=== PATIENT | female | born 1985 | race Caucasian/White ===

== ENCOUNTER 2021-03-10 08:59 | Outpatient (CLI) | payer OTHER, SELFPAY ==
--- NOTE | 2021-03-10 11:30 | NEURO_ITS ---
Impression: # Complains of nocturnal paresthesia of bilateral hands. # Right Carpal Tunnel Syndrome of moderate degree. # Evolving left Carpal Tunnel Syndrome. # No ulnar neuropathy. # Normal needle/EMG exam. Nerve Conduction Studies Anti Sensory Summary Table Stim Site NR Peak (ms) P-T Amp (?V) Site1 Site2 Delta-P (ms) Dist (cm) Shimon (m/s) Left Median Anti Sensory (2-3nd Digit) Wrist 3.2 80.8 Wrist 2-3nd Digit 3.2 14.0 44 Wrist 3.2 21.1 Wrist 2-3nd Digit 3.2 14.0 44 Right Median Anti Sensory (2-3nd Digit) Wrist 3.5 56.1 Wrist 2-3nd Digit 3.5 14.0 40 Wrist 3.6 71.4 Wrist 2-3nd Digit 3.5 14.0 40 Left Radial Anti Sensory (Base 1st Digit) Wrist 1.8 33.6 Wrist Base 1st Digit 1.8 0.0 Right Radial Anti Sensory (Base 1st Digit) Wrist 1.7 24.5 Wrist Base 1st Digit 1.7 0.0 Left Ulnar Anti Sensory (5th Digit) Wrist 2.5 73.7 Wrist 5th Digit 2.5 14.0 56 Right Ulnar Anti Sensory (5th Digit) Wrist 2.1 74.2 Wrist 5th Digit 2.1 14.0 67 Motor Summary Table Stim Site NR Onset (ms) O-P Amp (mV) Site1 Site2 Delta-0 (ms) Dist (cm) Shimon (m/s) Left Median Motor (Abd Poll Brev) Wrist 3.2 4.7 Elbow Wrist 4.1 26.0 63 Elbow 7.3 3.7 Right Median Motor (Abd Poll Brev) Wrist 4.6 2.0 Elbow Wrist 3.8 25.0 66 Elbow 8.4 2.0 Left Ulnar Motor (Abd Dig Minimi) Wrist 2.2 8.3 A Elbow Wrist 4.3 27.0 63 A Elbow 6.5 7.9 Right Ulnar Motor (Abd Dig Minimi) Wrist 2.3 9.2 A Elbow Wrist 4.1 26.0 63 A Elbow 6.4 8.6 F Wave Studies NR F-Lat (ms) L-R F-Lat (ms) Left Median (Mrkrs) (Abd Poll Brev) 24.59 1.26 Right Median (Mrkrs) (Abd Poll Brev) 25.85 1.26 Left Ulnar (Mrkrs) (Abd Dig Min) 25.16 0.52 Right Ulnar (Mrkrs) (Abd Dig Min) 25.68 0.52 EMG Side Muscle Nerve Root Ins Act Fibs Amp Dur Recrt Comment Right 1stDorInt Ulnar C8-T1 Nml Nml Nml Nml Nml Right Ext Indicis Radial (Post Int) C7-8 Nml Nml Nml Nml Nml Right Ext Digitorum Radial (Post Int) C7-8 Nml Nml Nml Nml Nml Right BrachioRad Radial C5-6 Nml Nml Nml Nml Nml Right PronatorTeres Median C6-7 Nml Nml Nml Nml Nml Right Abd Poll Brev Median C8-T1 Nml Nml Nml Nml Nml Left 1stDorInt Ulnar C8-T1 Nml Nml Nml Nml Nml Left Ext Indicis Radial (Post Int) C7-8 Nml Nml Nml Nml Nml Left Ext Digitorum Radial (Post Int) C7-8 Nml Nml Nml Nml Nml Left BrachioRad Radial C5-6 Nml Nml Nml Nml Nml Left PronatorTeres Median C6-7 Nml Nml Nml Nml Nml Left Abd Poll Brev Median C8-T1 Nml Nml Nml Nml Nml MTDD
== END 2021-03-10 09:00 | disposition home or self-care (01) ==
PROVIDERS: PCP Nurse Practitioner Family; Visit Provider Nurse Practitioner Family
DX: G56.03 Carpal tunnel syndrome, bilateral upper limbs (principal)
CPT/HCPCS: 95886; 95911

== ENCOUNTER 2021-03-24 09:25 | Outpatient (CLI) | payer OTHER, SELFPAY ==
[2021-03-24 10:28] LABS: Hematocrit 44.6 % (37.0-47.0); Hemoglobin 14.8 g/dL (12.0-15.0); Mean Corpuscular HGB Conc 33.2 g/dl (32-36); Mean Corpuscular Hemoglobin 29.2 pg (26-34); Platelet Count Result 316 k/mm3 (150-375); Red Blood Count 5.07 M/mm3 (4.2-5.4); Red Cell Distribution Width 13.7 % (11.5-14.5); White Blood Count 10.2 K/mm3 (4.5-10.0)
[2021-03-24 11:17] LABS: Alanine Aminotransferase 24 U/L (4-35); Albumin Level 4.4 g/dL (3.5-5.1); Alkaline Phosphatase 64 U/L (38-126); Anion Gap 8 mmol/L (8-16); Aspartate Amino Transferase 21 U/L (14-36); Bilirubin,Total 0.7 mg/dL (0.2-1.3); Blood Urea Nitrogen 13 mg/dL (7-17); Calcium 9.6 mg/dL (8.4-10.2); Carbon Dioxide 28 mmol/L (22-30); Chloride 103 mmol/L (98-107); Cholesterol 257 mg/dL (0-200); Estimated Glomerular Filt Rate > 60; Glucose 101 mg/dL (65-110); HDL Direct 39 mg/dL; Potassium 3.7 mmol/L (3.4-5.0); Sodium 139 mmol/L (137-145); Triglycerides 147 mg/dL (<150)
[2021-03-24 11:27] LABS: LDL Cholesterol Direct 153 mg/dL
[2021-03-24 11:52] LABS: Hemoglobin A1C 5.6 % (<5.7)
[2021-03-24 12:03] LABS: Thyroid Stimulating Hormone Reflex 0.838 uIU/mL (0.465-4.68)
[2021-03-24 12:24] LABS: Vitamin D 25 Hydroxy 50.5 ng/mL
== END 2021-03-24 09:26 | disposition home or self-care (01) ==
LOC: ANHLAB 09:29
PROVIDERS: PCP Nurse Practitioner Family; Visit Provider Obstetrics & Gynecology
DX: Z01.812 Encounter for preprocedural laboratory examination (principal); Z51.81 Encounter for therapeutic drug level monitoring; Z79.899 Other long term (current) drug therapy
CPT/HCPCS: 36415; 80053; 80061; 82306; 82607; 83036; 84443; 85027

== ENCOUNTER 2021-06-01 16:12 | Outpatient (CLI) | payer OTHER, SELFPAY | END 2021-06-01 16:13 | disposition home or self-care (01) | LOC: ANHLAB 16:14 | PROVIDERS: PCP Nurse Practitioner Family; Visit Provider Nurse Practitioner Family | DX: Z86.16 Personal history of COVID-19 (principal); Z20.822 Contact with and (suspected) exposure to COVID-19 | CPT/HCPCS: 36415; 86769 ==

== ENCOUNTER 2021-09-14 15:14 | Outpatient (CLI) | payer OTHER, SELFPAY ==
[2021-09-14 16:54] LABS: SARS-CoV-2 IgG Reactive (NonReactive)
== END 2021-09-14 15:15 | disposition home or self-care (01) ==
LOC: ANHLAB 15:17
PROVIDERS: PCP Nurse Practitioner Family; Visit Provider Nurse Practitioner Family
DX: U07.1 COVID-19 (principal)
CPT/HCPCS: 36415; 86769

== ENCOUNTER 2021-12-12 12:02 | Outpatient (CLI) | payer OTHER, SELFPAY ==
--- NOTE | ~2021-12-12 | XR_ITS ---
EXAM: XR foot LT 2V HISTORY: M79.672 - Pain in left foot 3-5 DISTAL METATARSALS NO TRAUMA COMPARISON: None available FINDINGS: Normal mineralization. No fracture or dislocation. No lytic or blastic lesion. Mild degene rative change in multiple midfoot joints and the first MTP. Plantar and Achilles enthesopathy. No ero shikha or periosteal change. Soft tissues within normal limits. IMPRESSION: No acute osseous finding in the left foot. Reviewed, dictated and finalized at location K.
== END 2021-12-12 12:03 | disposition home or self-care (01) ==
PROVIDERS: PCP Nurse Practitioner Family; Visit Provider Nurse Practitioner Family
DX: M79.672 Pain in left foot (principal)
CPT/HCPCS: 73620

== ENCOUNTER 2022-03-27 18:40 | Outpatient (CLI) | payer OTHER, SELFPAY ==
[2022-03-27 18:59] LABS: Basophils Absolute Auto 0.1 K/mm3 (0.0-0.1); Basophils Percent Auto 0.7 % (0.2-1.2); Eosinophils Absolute Auto 0.2 K/mm3 (0-0.3); Eosinophils Percent Auto 1.6 % (0-4.4); Hematocrit 40.7 % (37.0-47.0); Hemoglobin 13.3 g/dL (12.0-15.0); Immature Granulocyte Absolute 0.05 K/mm3 (0.00-0.031); Immature Granulocyte Percent A 0.4 % (0-0.5); Lymphocytes Absolute Auto 3.25 K/mm3 (0.9-3.2); Lymphocytes Percent Auto 28.6 % (18.3-44.2); Mean Corpuscular HGB Conc 32.7 g/dl (32-36); Mean Corpuscular Hemoglobin 29.6 pg (26-34); Mean Corpuscular Volume 90.4 fl (80-100); Mean Platelet Volume 11.1 fl (7.4-10.4); Monocytes Absolute Auto 0.8 K/mm3 (0.1-0.6); Monocytes Percent Auto 7.3 % (2.6-8.5); Neutrophils Percent Auto 61.4 % (45.5-73.1); Platelet Count Result 362 k/mm3 (150-375); Red Cell Distribution Width 14.3 % (11.5-14.5); White Blood Count 11.4 K/mm3 (4.5-10.0)
[2022-03-27 19:39] LABS: Alanine Aminotransferase 31 U/L (6-35); Albumin Level 4.3 g/dL (3.5-5.1); Alkaline Phosphatase 54 U/L (38-126); Anion Gap 8 mmol/L (8-16); Aspartate Amino Transferase 23 U/L (14-36); Bilirubin,Total 0.4 mg/dL (0.2-1.3); Blood Urea Nitrogen 11 mg/dL (7-17); Calcium 9.1 mg/dL (8.4-10.2); Carbon Dioxide 29 mmol/L (22-30); Chloride 102 mmol/L (98-107); Cholesterol 231 mg/dL (0-200); Estimated Glomerular Filt Rate > 60; Glucose 114 mg/dL (65-110); HDL Direct 36 mg/dL; Sodium 139 mmol/L (137-145); Triglycerides 174 mg/dL (<150)
[2022-03-27 19:50] LABS: LDL Cholesterol Direct 153 mg/dL
== END 2022-03-27 18:41 | disposition home or self-care (01) ==
LOC: ANHOBOP 18:43
PROVIDERS: PCP Nurse Practitioner Family; Visit Provider Nurse Practitioner Family
DX: U07.1 COVID-19 (principal); I10 Essential (primary) hypertension
CPT/HCPCS: 36415; 80053; 80061; 85025; 86769

== ENCOUNTER 2022-04-23 22:15 | Outpatient (CLI) | payer OTHER, SELFPAY ==
[2022-04-23 22:29] LABS: Basophils Absolute Auto 0.1 K/mm3 (0.0-0.1); Basophils Percent Auto 0.7 % (0.2-1.2); Eosinophils Absolute Auto 0.4 K/mm3 (0-0.3); Eosinophils Percent Auto 3.2 % (0-4.4); Hematocrit 41.7 % (37.0-47.0); Hemoglobin 13.9 g/dL (12.0-15.0); Immature Granulocyte Absolute 0.04 K/mm3 (0.00-0.031); Immature Granulocyte Percent A 0.3 % (0-0.5); Lymphocytes Absolute Auto 4.01 K/mm3 (0.9-3.2); Lymphocytes Percent Auto 33.3 % (18.3-44.2); Mean Corpuscular HGB Conc 33.3 g/dl (32-36); Mean Corpuscular Hemoglobin 29.7 pg (26-34); Mean Corpuscular Volume 89.1 fl (80-100); Mean Platelet Volume 11.2 fl (7.4-10.4); Monocytes Absolute Auto 0.8 K/mm3 (0.1-0.6); Monocytes Percent Auto 6.2 % (2.6-8.5); Neutrophils Absolute Auto 6.8 K/mm3 (1.3-6.7); Neutrophils Percent Auto 56.3 % (45.5-73.1); Platelet Count Result 309 k/mm3 (150-375); Red Blood Count 4.68 M/mm3 (4.2-5.4); Red Cell Distribution Width 14.2 % (11.5-14.5); White Blood Count 12.1 K/mm3 (4.5-10.0)
== END 2022-04-23 22:16 | disposition home or self-care (01) ==
LOC: ANHOBOP 22:16
PROVIDERS: PCP Nurse Practitioner Family; Visit Provider Nurse Practitioner Family
DX: D72.829 Elevated white blood cell count, unspecified (principal)
CPT/HCPCS: 36415; 85025

== ENCOUNTER 2022-05-24 01:01 | Outpatient (CLI) | payer OTHER, SELFPAY ==
[2022-05-24 01:17] LABS: Basophils Absolute Auto 0.1 K/mm3 (0.0-0.1); Basophils Percent Auto 0.5 % (0.2-1.2); Eosinophils Absolute Auto 0.4 K/mm3 (0-0.3); Eosinophils Percent Auto 2.7 % (0-4.4); Hemoglobin 14.1 g/dL (12.0-15.0); Immature Granulocyte Absolute 0.07 K/mm3 (0.00-0.031); Immature Granulocyte Percent A 0.5 % (0-0.5); Lymphocytes Percent Auto 28.9 % (18.3-44.2); Mean Corpuscular HGB Conc 33.6 g/dl (32-36); Mean Corpuscular Hemoglobin 30.2 pg (26-34); Mean Corpuscular Volume 89.9 fl (80-100); Mean Platelet Volume 10.8 fl (7.4-10.4); Monocytes Absolute Auto 0.9 K/mm3 (0.1-0.6); Monocytes Percent Auto 6.5 % (2.6-8.5); Neutrophils Percent Auto 60.9 % (45.5-73.1); Platelet Count Result 321 k/mm3 (150-375); Red Blood Count 4.67 M/mm3 (4.2-5.4); Red Cell Distribution Width 14.2 % (11.5-14.5); White Blood Count 13.1 K/mm3 (4.5-10.0)
== END 2022-05-24 01:02 | disposition home or self-care (01) ==
LOC: ANHOBOP 01:02
PROVIDERS: PCP Nurse Practitioner Family; Visit Provider Nurse Practitioner Family
DX: D72.829 Elevated white blood cell count, unspecified (principal)
CPT/HCPCS: 36415; 85025

== ENCOUNTER 2022-05-24 06:39 | Outpatient (CLI) | payer OTHER, SELFPAY ==
--- NOTE | ~2022-05-24 | CT_ITS ---
EXAMINATION: CTA brain DATE: 05/24/2022 07:23 INDICATION: Right-sided pulsatile tinnitus. TECHNIQUE: Computed tomographic angiography (CTA) of the head was performed without and with 100 mL O mnipaque-350 intravenous contrast. Automated exposure control and iterative reconstruction technique were employed. The dose-length product was 998.15 mGy-cm. Maximum intensity projection 3D reconstruc tions were created. Volume-rendered 3D reconstructions of the intracranial arteries were created by jamaal campbell technologist on a separate workstation. COMPARISON: None. FINDINGS: There is no intracranial hemorrhage, acute infarction, or abnormal intracranial mass lesion . The ventricles are normal in size. The orbits are normal. There is mild mucosal thickening in the p aranasal sinuses. The mastoid air cells are normal. The vertebral arteries are codominant. There is n o significant stenosis of basilar artery or the posterior cerebral arteries. The posterior communicat ing arteries are normal. There is no significant stenosis of the intracranial internal carotid arteri es or anterior or middle cerebral arteries. Anterior communicating artery is normal. There is no aneu rysm. IMPRESSION: 1. Normal brain. No aneurysm or significant intracranial arterial stenosis. Reviewed, dictated and finalized at location A.
[2022-05-24 07:11] LABS: Estimated Glomerular Filt Rate > 60
== END 2022-05-24 06:40 | disposition home or self-care (01) ==
PROVIDERS: PCP Nurse Practitioner Family; Visit Provider Otolaryngology
DX: H93.A1 Pulsatile tinnitus, right ear (principal)
CPT/HCPCS: 70496; Q9967

== ENCOUNTER 2022-07-25 18:39 | Outpatient (CLI) | payer OTHER, SELFPAY ==
[2022-07-25 19:01] LABS: Hematocrit 43.9 % (37.0-47.0); Mean Corpuscular HGB Conc 34.2 g/dl (32-36); Mean Corpuscular Hemoglobin 30.2 pg (26-34); Mean Corpuscular Volume 88.5 fl (80-100); Mean Platelet Volume 10.8 fl (7.4-10.4); Platelet Count Result 303 k/mm3 (150-375); Red Blood Count 4.96 M/mm3 (4.2-5.4); Red Cell Distribution Width 13.4 % (11.5-14.5); White Blood Count 10.5 K/mm3 (4.5-10.0)
[2022-07-25 19:53] LABS: Free T4 Free Thyroxine 1.15 ng/mL (0.78-2.19)
== END 2022-07-25 18:40 | disposition home or self-care (01) ==
LOC: ANHOBOP 18:42
PROVIDERS: PCP Nurse Practitioner Family; Visit Provider Obstetrics & Gynecology
DX: R53.83 Other fatigue (principal)
CPT/HCPCS: 36415; 82306; 82607; 84439; 84443; 85027

== ENCOUNTER 2022-07-31 08:51 | Outpatient (CLI) | payer OTHER, SELFPAY | END 2022-07-31 08:52 | disposition home or self-care (01) | LOC: ANHAUDIO 08:52 | PROVIDERS: PCP Nurse Practitioner Family; Visit Provider Otolaryngology | DX: H93.A1 Pulsatile tinnitus, right ear (principal); H93.8X9 Other specified disorders of ear, unspecified ear; H91.93 Unspecified hearing loss, bilateral | CPT/HCPCS: 92557; 92567 ==

== ENCOUNTER 2022-08-01 23:47 | Outpatient (CLI) | payer OTHER, SELFPAY ==
[2022-08-02 00:33] LABS: Alanine Aminotransferase 31 U/L (6-35); Albumin Level 4.7 g/dL (3.5-5.1); Alkaline Phosphatase 65 U/L (38-126); Anion Gap 8 mmol/L (8-16); Aspartate Amino Transferase 25 U/L (14-36); Bilirubin,Total 0.7 mg/dL (0.2-1.3); Blood Urea Nitrogen 13 mg/dL (7-17); Calcium 9.4 mg/dL (8.4-10.2); Carbon Dioxide 31 mmol/L (22-30); Chloride 100 mmol/L (98-107); Cholesterol 250 mg/dL (0-200); Estimated Glomerular Filt Rate > 60; Glucose 98 mg/dL (65-110); HDL Direct 41 mg/dL; Potassium 3.3 mmol/L (3.4-5.0); Sodium 139 mmol/L (137-145); Triglycerides 147 mg/dL (<150)
[2022-08-02 00:44] LABS: LDL Cholesterol Direct 156 mg/dL
[2022-08-02 01:31] LABS: Hemoglobin A1C 5.3 % (<5.7)
== END 2022-08-01 23:48 | disposition home or self-care (01) ==
LOC: ANHOBOP 23:49
PROVIDERS: PCP Nurse Practitioner Family; Visit Provider Nurse Practitioner Family
DX: I10 Essential (primary) hypertension (principal); E66.9 Obesity, unspecified
CPT/HCPCS: 36415; 80053; 80061; 83036

== ENCOUNTER 2022-08-31 09:50 | Outpatient (CLI) | payer OTHER, SELFPAY ==
--- NOTE | 2022-09-26 14:10 | WPDHOMESLEEP ---
Sleep Study - Home Unattended Date of Study: 08/31/22 Ordering Provider: Juliana Olivares APRN Interpreting Provider: Vanessa Avina, DO Home Sleep Study Type: Watch PAT Height: 1.55 m Weight: 92.533 kg Body Mass Index: 38.5 Neck Circumference (inches): 15 [place]: 10 Reason for Sleep Study Daytime hypersomnia Sleep History The patient is a 37-year-old female with hypertension pre diabetes, anxiety, obesity and history of tobacco use had a sleep study ordered by primary care for evaluation sleep apnea. The patient denies awakening from sleep short of breath. She denies awakening at night with heartburn, belching or cough. She frequently snores loud enough that others complain. She occasionally has trouble sleeping when she has a cold. She denies waking up gasping for air throughout the night. She rarely has breathing problems night observed by herself or others. He denies sweating excessively at night. She occasionally has heart palpitations or irregular heartbeats during the night. She frequently falls asleep during the day but never while driving. She denies sleep paralysis, cataplexy and hypnagogic / hypnopompic hallucinations. She occasionally has trouble at school or work due to sleepiness. She denies feeling afraid of going to sleep. She rarely has nightmares. She occasionally remembers her dreams. She rarely has thoughts racing through her mind. She occasionally feels sad, depressed and anxious. He rarely has muscular tension. She denies noticing parts of her body jerk. She denies kicking during the night. She denies having crawling and aching feelings in her legs and denies having leg pain during the night. She denies grinding her teeth during sleep and denies awakening with morning jaw pain. She denies being bothered by pain during the day and denies being awakened by pain during the night. He occasionally wakes up feeling stiff in the morning. She rarely wakes up with sore or achy muscles. She occasionally wakes up with pain in the neck, spine or other joints. She goes to bed at 9:00 p.m. on both weekdays and weekends. The amount of time it takes for her to fall asleep is variable. She wakes up 1-2 times throughout the night to urinate. It can take her 10 minutes up to a few hours to fall back asleep. She wakes up at 6:00 a.m. on weekdays and between 6-7 a.m. on weekends. She typically gets 5-7 hours of sleep per night. She will stay in bed for 20 minutes up to an hour after waking up in the morning. She currently lives with her and 4 children. 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 She will drink caffeinated soda within 2 hours of bedtime. She does not engage in physical exercise before bedtime. She will watch television before falling asleep. She will take naps in the afternoon or the evening but they are not refreshing. She drinks 2 of the 44 oz sodas per day. She quit smoking cigarettes 13 years ago. She denies alcohol and recreational drug PMFSH Past Medical History Medical History COVID-19 Essential (primary) hypertension LINO (generalized anxiety disorder) History of COVID-19 Left foot pain Obesity (BMI 35.0-39.9 without comorbidity) Seasonal allergies Sinusitis Surgical History Surgical History History of 3 sections Family History Family History Father Family history of coronary artery disease Acute myocardial infarction Hypertension Family history of type 2 diabetes mellitus Mother Family history of hypothyroidism Social History Social History Smoking status: Former smoker Alcohol intake: current Alcohol use details: Socially only Substance use: never Substance use type: does not use Occupation/Education: occupation Add
[2022-09-26 14:29] VITALS: BMI 38.5
== END 2022-09-05 16:09 | disposition home or self-care (01) ==
LOC: ANHCSM 09:51
PROVIDERS: PCP Nurse Practitioner Family; Visit Provider Nurse Practitioner Family
DX: G47.30 Sleep apnea, unspecified (principal); G47.33 Obstructive sleep apnea (adult) (pediatric)
CPT/HCPCS: 95800

== ENCOUNTER 2023-07-28 17:58 | Emergency (ER) | payer OTHER, SELFPAY ==
--- NOTE | ~2023-07-28 | CT_ITS ---
EXAMINATION: CT abdomen pelvis wo con DATE: 07/28/2023 20:25 INDICATION: R flank pain, hx of stones TECHNIQUE: Computed tomography (CT) of the abdomen and pelvis was performed without intravenous contr ast. Automated exposure control and iterative reconstruction technique were employed. The dose-length product was 1360.68 mGy-cm. COMPARISON: 05/16/2006. FINDINGS: Lower thorax: Unremarkable Liver: Normal. Biliary/Gallbladder: Gallbladder is normal. No bile duct dilation. Pancreas: No mass or duct dilation. Spleen: Normal. Adrenals:No mass. Kidneys: 11 mm exophytic right midpole simple cyst. Simple exophytic subcentimeter left upper pole cy st. Moderate right hydronephrosis. GI tract: No small or large bowel dilation. Normal appendix. Mesentery/Peritoneum: No ascites, mass, or free air. Retroperitoneum: No mass. Atherosclerotic abdominal aortic and/or arterial calcifications. Pelvis: 11 x 5 mm calcification in the distal right UVJ. The bladder is mostly decompressed. IUD, in good position. Otherwise normal uterus. Normal bilateral ovaries. Soft Tissues: Soft tissues and body wall unremarkable. Bones: No acute osseous finding. IMPRESSION: 11 x 5 mm calcification in the distal aspect of the right UVJ causing moderate obstructive uropathy. Reviewed, dictated and finalized at location K. S AND MARKETING DIRECTOR
[2023-07-28 17:59] VITALS: BP 207/117; PULSE 92; RESP 16; TEMP 36.6; O2SAT 99
[2023-07-28 18:20] LABS: Basophils Absolute Auto 0.1 K/mm3 (0.0-0.1); Basophils Percent Auto 0.9 % (0.2-1.2); Eosinophils Absolute Auto 0.3 K/mm3 (0-0.3); Eosinophils Percent Auto 2.6 % (0-4.4); Hematocrit 44.8 % (37.0-47.0); Hemoglobin 14.8 g/dL (12.0-15.0); Immature Granulocyte Absolute 0.08 K/mm3 (0.00-0.031); Immature Granulocyte Percent A 0.7 % (0-0.5); Lymphocytes Absolute Auto 4.12 K/mm3 (0.9-3.2); Lymphocytes Percent Auto 37.2 % (18.3-44.2); Mean Corpuscular Hemoglobin 30.1 pg (26-34); Mean Corpuscular Volume 91.1 fl (80-100); Mean Platelet Volume 10.8 fl (7.4-10.4); Monocytes Absolute Auto 0.8 K/mm3 (0.1-0.6); Monocytes Percent Auto 7.5 % (2.6-8.5); Neutrophils Absolute Auto 5.7 K/mm3 (1.3-6.7); Neutrophils Percent Auto 51.1 % (45.5-73.1); Platelet Count Result 335 k/mm3 (150-375); Red Blood Count 4.92 M/mm3 (4.2-5.4); White Blood Count 11.1 K/mm3 (4.5-10.0)
[2023-07-28 18:26] LABS: Appearance Urine Clear (Clear); Bacteria Urine 2+ /hpf; Bilirubin Urine Negative (Negative); Blood Urine 2+ (Negative); Color Urine Yellow (Yellow); Glucose Urine UA Negative (Negative); Ketones Urine Negative (Negative); Leukocyte Esterase Ur 2+ LEU/UL (Negative); Nitrate Urine Negative (Negative); Protein Urine Negative (Negative); RBC Urine 51-100 /hpf (0-2); Specific Grav Ur 1.016 (1.001-1.035); Squamous Epithelial Cell Urine Occasional /hpf (Few); Urobilinogen Urine 0.2 mg/dL (<2.0); WBC Urine 21-50 /hpf; pH Urine 5.5 (5.0-9.0)
[2023-07-28 18:27] LABS: Add Urine Microscopic? YES
[2023-07-28 18:34] LABS: Alanine Aminotransferase 27 U/L (6-35); Albumin Level 4.5 g/dL (3.5-5.1); Alkaline Phosphatase 59 U/L (38-126); Anion Gap 9 mmol/L (8-16); Aspartate Amino Transferase 23 U/L (14-36); Bilirubin,Total 0.4 mg/dL (0.2-1.3); Blood Urea Nitrogen 13 mg/dL (7-17); Calcium 9.9 mg/dL (8.4-10.2); Carbon Dioxide 27 mmol/L (22-30); Chloride 102 mmol/L (98-107); Estimated CRCL calculation 114 ml/min; Estimated Glomerular Filt Rate > 60; Glucose 93 mg/dL (65-110); Lipase 98 U/L (23-300); Potassium 3.5 mmol/L (3.4-5.0); Sodium 138 mmol/L (137-145)
--- NOTE | 2023-07-28 19:22 | ED.ABDPAIN ---
HPI - Abdominal Pain General Chief Complaint: Abdominal Pain Stated Complaint: flank pain Time Seen by Provider: 07/28/23 18:03 History of Present Illness HPI narrative: 38-year-old female with a history of hypertension, FRANCISCO JAVIER in the ureterolithiasis reports for evaluation for right flank pain radiating to the right abdomen x4 hours. Patient states this feels like her prior kidney stones. She reports associated nausea, no emesis. She denies dysuria but does report pressure when she tries to urinate. Denies gross hematuria, vomiting, diarrhea, fever. Denies history of stent placement for prior stones. Her last stone was in 2018. Related Data Home Medications Medication Instructions Recorded Confirmed cholecalciferol (vitamin D3) 75 6,000 unit PO WEEKLY 06/17/19 11/17/22 mcg (3,000 unit) tablet mecobalamin (vitamin B12) 5,000 5,000 mcg PO .3 times a week 06/17/19 11/17/22 mcg disintegrating tablet alprazolam 0.5 mg tablet 0.5 mg PO DAILY PRN 05/05/20 11/17/22 cetirizine 10 mg capsule (Zyrtec) 10 mg PO DAILY PRN 12/13/21 11/17/22 Allergies Allergy/AdvReac Type Severity Reaction Status Date / Time losartan Allergy Intermediate headache, Verified 07/28/23 18:17 fatigue morphine Allergy Intermediate itching Verified 07/28/23 18:17 amlodipine AdvReac Severe THOM LE Verified 07/28/23 18:17 swelling lisinopril AdvReac Severe cough Verified 07/28/23 18:17 Review of Systems Review of Systems: CONSTITUTIONAL: Denies fever, chills, or sweats. EYES: Denies visual changes, redness, or discharge. ENT: Denies rhinorrhea, congestion, sore throat, or otalgia. CARDIOVASCULAR: Denies chest pain, palpitations, or edema. RESPIRATORY: Denies cough or dyspnea. GASTROINTESTINAL: See HPI GENITOURINARY: See HPI SKIN: Denies rash or itching. MUSCULOSKELETAL: See HPI NEUROLOGIC: Denies headache, numbness, or weakness. PSYCHIATRIC: Denies anxiety or depression. [facility] Past Medical History Medical History COVID-19 Essential (primary) hypertension LINO (generalized anxiety disorder) History of COVID-19 Left foot pain Obesity (BMI 35.0-39.9 without comorbidity) Seasonal allergies Sinusitis Surgical History Surgical History History of 3 sections History of right mastoidectomy Performed 10/23/2022 - with sinus resurfacing Family History Family History Father Family history of coronary artery disease Acute myocardial infarction Hypertension Family history of type 2 diabetes mellitus Mother Family history of hypothyroidism Social History Social History Smoking status: Former smoker Alcohol intake: current Alcohol use details: Socially only Substance use: never Substance use type: does not use Occupation/Education: occupation Additional occupation/education comments: RN Gender identity (if verbalized by the patient): Female Exam Narrative: GENERAL: Patient appears uncomfortable, nontoxic appearing HEAD: Normocephalic, atraumatic. EYES: PERRLA and EOMI. ENT: Nares clear, no rhinorrhea or epistaxis. Mucous membranes moist. NECK: Supple. CHEST: Clear to auscultation. No respiratory distress. HEART: Regular rate and rhythm. No murmur heard. Normal peripheral pulses. ABDOMEN: Normoactive bowel sounds. Abdomen soft with tenderness in the right flank and right lower quadrant. No guarding, rebound or rigidity. No overlying skin changes. EXTREMITIES: Normal range of motion. No edema. SKIN: Warm, dry, no rash. NEURO: No focal deficits. Alert and oriented x3 Course Vital Signs Vital signs: Vital Signs Temperature 97.9 F 07/28/23 17:59 Pulse Rate 92 07/28/23 17:59 Respiratory Rate 16 07/28/23 17:59 Blood Pressure 207/117 H 07/28/23 17
[2023-07-28] MEDS: HYDROmorphone HCL INJ (*CRX) 1 MG/ML SYR IV PUSH ×2 (19:34→21:19)
[2023-07-28] MEDS: ONDANSETRON INJ 4 MG/2 ML VIAL IV PUSH ×2 (19:34→21:18)
[2023-07-28] MEDS: SODIUM CHLORIDE 0.9% IV 1,000 ML 999 ML IV CONT (19:35)
--- NOTE | 2023-07-28 20:23 | PC.NURSE ---
Pt to CT at this time.
[2023-07-28 21:29] VITALS: BP 154/86; PULSE 73; RESP 18; O2SAT 98
[2023-07-28 21:50] VITALS: BP 148/90; PULSE 84; RESP 19; O2SAT 100
== END 2023-07-28 21:52 | disposition home or self-care (01) ==
PROVIDERS: Emergency Medicine; Emergency Provider Physician Assistant; PCP Nurse Practitioner Family
DX: N13.9 Obstructive and reflux uropathy, unspecified (principal); N20.1 Calculus of ureter; I10 Essential (primary) hypertension; E66.9 Obesity, unspecified; Z68.41 Body mass index [BMI] 40.0-44.9, adult; G47.33 Obstructive sleep apnea (adult) (pediatric); Z87.442 Personal history of urinary calculi; Z86.16 Personal history of COVID-19; Z87.891 Personal history of nicotine dependence
CPT/HCPCS: 36415; 74176; 80053; 81001; 81025; 83690; 85025; 87077; 87086; 87186; 96361; 96374; 96375; 96376; 99284; J1170; J2405; J7030

== ENCOUNTER 2023-07-30 09:46 | Observation (INO) | payer OTHER, SELFPAY ==
[2023-07-30] VITALS (15 sets, daily range): BP systolic 126–155; BP diastolic 64–96; PULSE 90–123; RESP 12–24; TEMP 36.4–37.9; O2SAT 95–100
--- NOTE | ~2023-07-30 | XR_ITS ---
EXAMINATION: XR abdomen/kub 1V INDICATION: Large right UVJ stone TECHNIQUE: Supine views of the abdomen were obtained on 2 radiographs. COMPARISON: CT, 07/28/2023 FINDINGS: A 13 mm stone projects in the urinary bladder. The bowel gas pattern is normal. 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 An IUD is noted IMPRESSION: 1. 13 mm stone projecting in the urinary bladder. Reviewed, dictated and finalized at location B. MIZATION SPECIALIST
--- NOTE | ~2023-07-30 | XR_ITS ---
EXAMINATION: XR retrograde pyelo w/stent RT DATE: 07/30/2023 11:54 INDICATION: Right internal ureteral stent placement TECHNIQUE: Fluoroscopic images from a right stent placement are submitted for review. 26 seconds of f luoroscopy time. FINDINGS: There is a right double-J internal ureteral stent projecting in expected position, with proximal [place] loop at the level of the renal pelvis and distal loop in the pelvis within the bladder lumen. IMPRESSION: 1. Right internal ureteral stent placement. Please refer to real-time procedural findings for detai ls. Reviewed, dictated and finalized at location A. VIOR MANAGEMENT SPECIALIST IMPRESSION: 1. Right internal ureteral stent placement. Please refer to real-time procedu ral findings for details.
--- NOTE | ~2023-07-30 | XR_ITS ---
EXAMINATION: XR stent kub - surgery DATE: 08/02/2023 13:25 SLIDE FORMING MACHINE TENDER INDICATION: RIGHT STENT EXCHANGE . TECHNIQUE: 4 fluoroscopic images of the abdomen were obtained during right ureteral stent exchange pe rformed by the surgeon. I was not present in the operating room. Fluoroscopy exposure time was 14.7 s econds. Air Kerma 9.23 mGy. DAP [id number] mGym2. COMPARISON: 07/30/2023 FINDINGS: Ureteral stent evident in the cloth bin packer. Wire access. Status post deployment of the new stent, proximal c oil projects over the expected location of the renal pelvis and the distal coil over the expected loc ation of the bladder. IMPRESSION: Fluoroscopic documentation of right ureteral stent exchange. Please refer to the operative note for c omplete procedural details . Reviewed, dictated and finalized at location K. E FORMING MACHINE TENDER IMPRESSION: Fluoroscopic documentation of right ureteral stent exchange. Please refer to th e operative note for complete procedural details .
--- NOTE | 2023-07-30 10:33 | WPDURCON ---
Assessment and Plan Assessment and plan (1) Calculus of distal right ureter: Code(s): N20.1 - Calculus of ureter Status: Acute Assessment and Plan: this so she with fever and possible urinary tract infection. she will be taken urgently to the operating room for right ureteral stent placement. She understands I will unlikely be able to manipulate her stone at this time due to the presence of fever. She understands risks of bleeding, infection, damage to the urinary tract. She understands the risk of inability to place the urinary stent. Definitive stone procedure will follow as an outpatient she will be admitted to the Medicine Service postoperatively on broad-spectrum antibiotics. (2) Hydronephrosis: Code(s): N13.30 - Unspecified hydronephrosis Status: Acute (3) Abnormal urinalysis: Code(s): R82.90 - Unspecified abnormal findings in urine Status: Acute Urology Consult Note HPI Date Seen: 07/30/23 Primary Care Provider: Juliana Olivares APRN Consult Narrative Narrative: Leslie Herzog is a 38 year old female she has a previous history of nephrolithiasis. she passed the stone on her own in 2018. Over the weekend she noted acute onset of right flank pain. This was associated with nausea vomiting. She was seen in the ER. CT scan was done which showed a large 11 mm distal ureteral stone. She was sent home with pain medicine. She returns today with fever of 100.1 and continue nausea vomiting. She has also noted chills and sweating. She denies visible blood in the urine or dysuria. She will be taken emergently to the OR for ureteral stent placement Review of Systems Review of Systems: All systems reviewed & are unremarkable except as noted in HPI and below PMFSH Past Medical History Medical History (Updated 07/30/23 @ 10:39 by Braydon Da Silva MD) COVID-19 Essential (primary) hypertension Fever LINO (generalized anxiety disorder) History of COVID-19 Left foot pain Obesity (BMI 35.0-39.9 without comorbidity) Seasonal allergies Sinusitis Surgical History Surgical History History of 3 sections History of right mastoidectomy Performed 10/23/2022 - with sinus resurfacing Family History Family History Father Family history of coronary artery disease Acute myocardial infarction Hypertension Family history of type 2 diabetes mellitus Mother Family history of hypothyroidism Social History Social History Smoking status: Former smoker Alcohol intake: current Alcohol use details: Socially only Substance use: never Substance use type: does not use Occupation/Education: occupation Additional occupation/education comments: RN Gender identity (if verbalized by the patient): Female Meds Home Medications and Allergies Home Medications Medication Instructions Recorded Confirmed Type cholecalciferol (vitamin D3) 75 6,000 unit PO WEEKLY 06/17/19 11/17/22 History mcg (3,000 unit) tablet mecobalamin (vitamin B12) 5,000 5,000 mcg PO .3 times a week 06/17/19 11/17/22 History mcg disintegrating tablet alprazolam 0.5 mg tablet 0.5 mg PO DAILY PRN 05/05/20 11/17/22 History fluticasone propionate 50 1 spray intranasal DAILY #18.2 mL 05/05/20 11/17/22 Rx mcg/actuation nasal spray,suspension (Flonase Allergy Relief) cetirizine 10 mg capsule (Zyrtec) 10 mg PO DAILY PRN 12/13/21 11/17/22 History liraglutide (weight loss) 3 mg/0.5 See Rx Instructions subcut 01/12/23 Rx mL (18 mg/3 mL) subcut pen .COMPLEX #15 mL injector (Saxenda) hydrochlorothiazide 12.5 mg tablet See Rx Instructions .Route 07/19/23 Rx .COMPLEX #90 tabs hydrocodone 5 mg-acetaminophen 325 1 tablet PO Q8H PRN pain #14 tabs 07/28/23 Rx mg tablet ondansetron 4 mg disintegrating 4
--- NOTE | 2023-07-30 10:33 | ED.ABDPAIN ---
HPI - Abdominal Pain General Chief Complaint: Abdominal Pain <PATRICIA Thrasher Last Filed: 07/30/23 17:38> Stated Complaint: kidney stone <PATRICIA Thrasher Last Filed: 07/30/23 17:38> Time Seen by Provider: 07/30/23 09:59 <Kimber Rea PA-C - Last Filed: 07/30/23 17:38> Source: patient and old records reviewed <PATRICIA Thrasher Last Filed: 07/30/23 17:38> Mode of arrival: ambulatory <PATRICIA Thrasher Last Filed: 07/30/23 17:38> Limitations: no limitations <PATRICIA Thrasher Last Filed: 07/30/23 17:38> History of Present Illness HPI narrative: Patient is a 38-year-old female who presents ED with report of right-sided kidney stone. Patient reports she was seen in the ED here 2 days ago for R flank pain and diagnosed with a 11 x 5 mm stone in the right UVJ. Patient states her pain was improved in the ED and she was discharged home for outpatient Urology follow-up. Patient developed fevers yesterday, and reports having intermittent chills and diaphoresis all day long. She has been taking Tylenol and Advil throughout the day. She woke up this morning with worsening pain in her right lower abdomen as well as a persistent fever, N/V, which prompted her to return to the ED. Patient reports persistent dysuria. Denies hematuria. <Kimber Rea PA-C - Last Filed: 07/30/23 17:38> Related Data Home Medications: Home Medications Medication Instructions Recorded Confirmed mecobalamin (vitamin B12) 5,000 5,000 mcg PO .3 times a week 06/17/19 07/30/23 mcg disintegrating tablet cetirizine 10 mg capsule (Zyrtec) 10 mg PO DAILY PRN allergies 12/13/21 07/30/23 fluticasone propionate 50 1 spray intranasal DAILY PRN 07/30/23 07/30/23 mcg/actuation nasal allergies spray,suspension (Flonase Allergy Relief) hydrochlorothiazide 12.5 mg tablet 12.5 mg PO BID 07/30/23 07/30/23 <Kimber Rea PA-C - Last Filed: 07/30/23 17:38> Allergies/Adverse Reactions: Allergies Allergy/AdvReac Type Severity Reaction Status Date / Time losartan Allergy Intermediate headache, Verified 07/30/23 14:48 fatigue morphine Allergy Intermediate itching Verified 07/30/23 14:48 amlodipine AdvReac Severe THOM LE Verified 07/30/23 14:48 swelling lisinopril AdvReac Severe cough Verified 07/30/23 14:48 <Kimber Rea PA-C - Last Filed: 07/30/23 17:38> Review of Systems Review of Systems: CONSTITUTIONAL: See HPI. CARDIOVASCULAR: Denies chest pain. RESPIRATORY: Denies dyspnea. GASTROINTESTINAL: See HPI. GENITOURINARY: See HPI. MUSCULOSKELETAL: See HPI. <Kimber Rea PA-C - Last Filed: 07/30/23 17:38> All systems reviewed & are unremarkable except as noted in HPI and below <Kimber Rea PA-C - Last Filed: 07/30/23 17:38> [facility] Past Medical History Medical History: Medical History COVID-19 Essential (primary) hypertension Fever LINO (generalized anxiety disorder) History of COVID-19 Left foot pain Obesity (BMI 35.0-39.9 without comorbidity) Seasonal allergies Sinusitis <Kimber Rea PA-C - Last Filed: 07/30/23 17:38> Surgical History Surgical History: Surgical History History of 3 sections History of right mastoidectomy Performed 10/23/2022 - with sinus resurfacing <Kimber Rea PA-C - Last Filed: 07/30/23 17:38> Family History Family History: Family History Father Family history of coronary artery disease Acute myocardial infarction Hypertension Family history of type 2 diabetes mellitus Mother Family history of hypothyroidism <iKmber Rea PA-C - Last Filed: 07/30/23 17:38> Social History Social History: Social His
--- NOTE | 2023-07-30 10:42 | PM.IMHP ---
H&P: HPI History of Present Illness Date/Time: 07/30/23 10:42 Chief Complaint: Right flank pain, fever and chills Narrative: 38-year-old female with a history of hypertension, present ED with a chief complaint of right flank pain. Patient has been having intermittent right fem pain in past 2 days, patient came to ED for evaluation on jul 28, CT abdomen pelvis showed 11 x 5 mm calcification in the distal aspect of the right UVJ causing moderate obstructive uropathy, and moderate right hydronephrosis. Urinalysis showed pyuria and hematuria, 2+ bacteria. Leukocytosis 11. Patient was discharged home with the pain and antiemetic medication, tamsulosin. Patient came back home still has worsening t right flank pain, patient has suprapubic pain, dysuria., patient also has, fever, chills, nausea vomiting. Patient came back to ED for evaluation, in the ED, patient found have worsened leukocytosis today 27,300, left shift, CMP pending, urinalysis pending, blood culture pending. ER provider consulted urologist, urologist plans urgently ureteral stent placement. I discussed the case with ER provider, will start ceftriaxone 2 g IV once and daily, start fluid resuscitation, obtain blood culture urine culture. [facility] Past Medical History Medical History COVID-19 Essential (primary) hypertension Fever LINO (generalized anxiety disorder) History of COVID-19 Left foot pain Obesity (BMI 35.0-39.9 without comorbidity) Seasonal allergies Sinusitis Surgical History Surgical History History of 3 sections History of right mastoidectomy Performed 10/23/2022 - with sinus resurfacing Family History Family History Father Family history of coronary artery disease Acute myocardial infarction Hypertension Family history of type 2 diabetes mellitus Mother Family history of hypothyroidism Social History Social History Smoking status: Former smoker Tobacco type: cigarettes Alcohol intake: never Alcohol use details: Socially only Substance use: never Substance use type: does not use Do You Feel Safe in your Home?: Yes Lack of Transportation: No Lack of Food: Never True Current Housing: I Have Housing Concerned About Future Housing: No Difficulty Paying Gas/Electric Bills: No Difficulty Paying for Meds: No Currently Unemployed: No Education: Don't Know Difficulty w/ Childcare or Family Care: No Occupation/Education: occupation Additional occupation/education comments: RN Gender identity (if verbalized by the patient): Female Spiritual care concerns: No Meds Home Medications and Allergies Home Medications Medication Instructions Recorded Confirmed Type mecobalamin (vitamin B12) 5,000 5,000 mcg PO .3 times a week 06/17/19 07/30/23 History mcg disintegrating tablet cetirizine 10 mg capsule (Zyrtec) 10 mg PO DAILY PRN allergies 12/13/21 07/30/23 History tamsulosin 0.4 mg capsule (Flomax) 0.4 mg PO HS #14 caps 07/28/23 07/30/23 Rx fluticasone propionate 50 1 spray intranasal DAILY PRN 07/30/23 07/30/23 History mcg/actuation nasal allergies spray,suspension (Flonase Allergy Relief) hydrochlorothiazide 12.5 mg tablet 12.5 mg PO BID 07/30/23 07/30/23 History Allergies Allergy/AdvReac Type Severity Reaction Status Date / Time losartan Allergy Intermediate headache, Verified 07/30/23 14:48 fatigue morphine Allergy Intermediate itching Verified 07/30/23 14:48 amlodipine AdvReac Severe THOM LE Verified 07/30/23 14:48 swelling lisinopril AdvReac Severe cough Verified 07/30/23 14:48 Vital Signs Vital Signs - 24 hr 07/30/23 09:51 Temperature 99.1 F Pulse Rate 102 H Respiratory Rate 18 Blood Pressure 131/91 H Pulse Oximetry 98 O
[2023-07-30 10:44] LABS: Basophils Absolute Auto 0.1 K/mm3 (0.0-0.1); Basophils Percent Auto 0.4 % (0.2-1.2); Eosinophils Absolute Auto 2.9 K/mm3 (0-0.3); Eosinophils Percent Auto 10.6 % (0-4.4); Hematocrit 41.1 % (37.0-47.0); Hemoglobin 13.8 g/dL (12.0-15.0); Immature Granulocyte Absolute 0.19 K/mm3 (0.00-0.031); Immature Granulocyte Percent A 0.7 % (0-0.5); Lymphocytes Absolute Auto 1.04 K/mm3 (0.9-3.2); Lymphocytes Percent Auto 3.8 % (18.3-44.2); Mean Corpuscular HGB Conc 33.6 g/dl (32-36); Mean Corpuscular Hemoglobin 30.1 pg (26-34); Mean Corpuscular Volume 89.5 fl (80-100); Mean Platelet Volume 11.3 fl (7.4-10.4); Monocytes Absolute Auto 2.1 K/mm3 (0.1-0.6); Monocytes Percent Auto 7.6 % (2.6-8.5); Neutrophils Percent Auto 76.9 % (45.5-73.1); Platelet Count Result 265 k/mm3 (150-375); Red Blood Count 4.59 M/mm3 (4.2-5.4); Red Cell Distribution Width 13.7 % (11.5-14.5); White Blood Count 27.3 K/mm3 (4.5-10.0)
[2023-07-30 10:55] LABS: INR 1.1; Prothrombin Time 14.5 Seconds (11.1-14.7)
[2023-07-30 10:56] LABS: Partial Thromboplastin Time 33.8 SECONDS (22.3-36.8)
[2023-07-30 10:57] LABS: Alanine Aminotransferase 21 U/L (6-35); Albumin Level 4.2 g/dL (3.5-5.1); Alkaline Phosphatase 71 U/L (38-126); Anion Gap 9 mmol/L (8-16); Aspartate Amino Transferase 16 U/L (14-36); Bilirubin,Total 1.1 mg/dL (0.2-1.3); Blood Urea Nitrogen 12 mg/dL (7-17); Calcium 9.5 mg/dL (8.4-10.2); Carbon Dioxide 28 mmol/L (22-30); Chloride 99 mmol/L (98-107); Estimated Glomerular Filt Rate > 60; Glucose 130 mg/dL (65-110); Potassium 2.8 mmol/L (3.4-5.0); Sodium 136 mmol/L (137-145)
[2023-07-30] MEDS: LACTATED RINGERS 1,000 ML 30 ML IV CONT ×2 (11:10→12:49)
[2023-07-30 11:11] LABS: Lactic Acid Reflex 1.3 mmol/L (0.7-2.0)
--- NOTE | 2023-07-30 11:12 | WPDANESEPPF ---
Anes - Initial Pre Proc Eval Procedure: Operation Date: 07/30/23 15:00 Proposed Procedures p Cystoscopy, Right Ureteral Stent Placement - Braydon Da Silva MD Date/Time: 07/30/23 11:12 Surgeon: Zahra Dejesus MD Pre Op Diagnosis: kidney stone Patient Data Age: 38 Gender: F Height: Weight: 95.3 kg Last Vital Signs Temp 37.3 C 07/30/23 09:51 Pulse 102 H 07/30/23 09:51 Resp 18 07/30/23 09:51 BP 131/91 H 07/30/23 09:51 Pulse Ox 98 07/30/23 09:51 O2 Del Method Room Air 07/30/23 09:51 Allergies Allergy/AdvReac Type Severity Reaction Status Date / Time losartan Allergy Intermediate headache, Verified 07/30/23 10:36 fatigue morphine Allergy Intermediate itching Verified 07/30/23 10:36 amlodipine AdvReac Severe THOM LE Verified 07/30/23 10:36 swelling lisinopril AdvReac Severe cough Verified 07/30/23 10:36 Home Medications Medication Instructions Recorded Confirmed Type cholecalciferol (vitamin D3) 75 6,000 unit PO WEEKLY 06/17/19 11/17/22 History mcg (3,000 unit) tablet mecobalamin (vitamin B12) 5,000 5,000 mcg PO .3 times a week 06/17/19 11/17/22 History mcg disintegrating tablet alprazolam 0.5 mg tablet 0.5 mg PO DAILY PRN 05/05/20 11/17/22 History fluticasone propionate 50 1 spray intranasal DAILY #18.2 mL 05/05/20 11/17/22 Rx mcg/actuation nasal spray,suspension (Flonase Allergy Relief) cetirizine 10 mg capsule (Zyrtec) 10 mg PO DAILY PRN 12/13/21 11/17/22 History liraglutide (weight loss) 3 mg/0.5 See Rx Instructions subcut 01/12/23 Rx mL (18 mg/3 mL) subcut pen .COMPLEX #15 mL injector (Saxenda) hydrochlorothiazide 12.5 mg tablet See Rx Instructions .Route 07/19/23 Rx .COMPLEX #90 tabs hydrocodone 5 mg-acetaminophen 325 1 tablet PO Q8H PRN pain #14 tabs 07/28/23 Rx mg tablet ondansetron 4 mg disintegrating 4 mg PO Q8H #14 tabs 07/28/23 Rx tablet tamsulosin 0.4 mg capsule (Flomax) 0.4 mg PO HS #14 caps 07/28/23 Rx Laboratory Tests 07/30/23 10:34 WBC 27.3 H K/mm3 (4.5-10.0) RBC 4.59 M/mm3 (4.2-5.4) Hgb 13.8 g/dL (12.0-15.0) Hct 41.1 % (37.0-47.0) MCV 89.5 fl (80-100) MCH 30.1 pg (26-34) MCHC 33.6 g/dl (32-36) RDW 13.7 % (11.5-14.5) Plt Count 265 k/mm3 (150-375) MPV 11.3 H fl (7.4-10.4) Immature Gran % (Auto) 0.7 H % (0-0.5) Neut % (Auto) 76.9 H % (45.5-73.1) Lymph % (Auto) 3.8 L % (18.3-44.2) [place] % (Auto) 7.6 % (2.6-8.5) Eos % (Auto) 10.6 H % (0-4.4) Baso % (Auto) 0.4 % (0.2-1.2) Lymph # (Auto) 1.04 K/mm3 (0.9-3.2) [place] # (Auto) 2.1 H K/mm3 (0.1-0.6) Eos # (Auto) 2.9 H K/mm3 (0-0.3) Baso # (Auto) 0.1 K/mm3 (0.0-0.1) Abs Immat Gran (auto) 0.19 H K/mm3 (0.00-0.031) Absolute Neuts (auto) 21.0 H K/mm3 (1.3-6.7) Absolute Nucleated RBC 0.0 K/mm3 (0.0-0.012) Nucleated RBC % 0.0 % (0.0-0.2) PT 14.5 Seconds (11.1-14.7) INR 1.1 APTT 33.8 SECONDS (22.3-36.8) Sodium 136 L mmol/L (137-145) Potassium 2.8 L* mmol/L (3.4-5.0) Chloride 99 mmol/L (98-107) Carbon Dioxide 28 mmol/L (22-30) Anion Gap 9 mmol/L (8-16) BUN 12 mg/dL (7-17) Creatinine 0.80 mg/dL (0.7-1.0) Estim Creat Clear Calc Not Reportable Estimated GFR > 60 (59 - ) Glucose 130 H mg/dL (65-110) Lactic Acid 1.3 mmol/L (0.7-2.0) Calcium 9.5 mg/dL (8.4-10.2) Total Bilirubin 1.1 mg/dL (0.2-1.3) AST 16 U/L (14-36) ALT 21 U/L (6-35) Alkaline Phosphatase 71 U/L (38-126) Total Protein 8.0 g/dL (6.3-8.2) Albumin 4.2 g/dL (3.5-5.1) Patient hx anesthesia problems: none Family hx anesthesia problems: none Results Review: All pre-operative results and documents have been reviewed as part of the pre-operative evaluation. [facility] Past Medical History Medical History (Reviewed 07/30/23 @ 11:12 by Timothy Fermin
[2023-07-30] MEDS: cefTRIAXone 2 GM/NS 100 ML 2 GM/100 ML BAG IVPB (11:19)
--- NOTE | 2023-07-30 11:29 | SUR.PREOP ---
1110: DR. JAMISON PERFORMING ANES EVAL. PT HAD NEG U PREG IN ED 07/28/23; UNABLE TO OBTAIN URINE TODAY FOR EMERGENT SURGERY. OK TO PROCEED WITH PRIOR LAB PER DR. JAMISON
[2023-07-30] MEDS: LIDOCAINE HCL 2% GEL UROJET 10 ML PKG MUCOUS MEM (11:32)
--- NOTE | 2023-07-30 11:36 | WPDHPUPDATE1 ---
History and Physical Update Update Date/Time: 07/30/23 11:36 History and Physical has been reviewed, including an updated exam of the patient. There are NO changes in the patient's condition. Risks, benefits, and alternatives have been discussed and questions answered. Patient agrees to proceed with procedure.
[2023-07-30] MEDS: KETOROLAC 30 MG/ML VIAL (*BKC) IV PUSH (11:40)
--- NOTE | 2023-07-30 11:58 | W.PM.PROC2 ---
Procedure Note - Detailed Date of Procedure 07/30/23 Pre-op Diagnosis ureteral stone Post-op Diagnosis Same Procedure Performed cystoscopy, right retrograde pyelogram, right ureteral stent placed Surgeon Braydon Da Silva MD Garment Fitter none Anesthesia MAC and Local ( uro jet) Indications this is a with a large distal ureteral stone. His Doe mm. She has fever as well as elevated white count. She is here today for stent placement. She understands risks of bleeding, infection, inability to place stent, damage to the urinary tract. She understands I will not be removing the stone Findings large distal ureteral Description of Procedure she was correctly identified. Informed consent obtained. She from the operating room. She was given general anesthesia. She was placed in dorsal thigh position. She was prepped and draped sterile fashion. Time-out performed. I performed cystoscopy. The bladder was examined. There was cloudy urine sent for culture. Bladder otherwise normal. I can see the right distal ureteral stone poking out of the right ureteral orifice. I did a gentle retrograde pyelogram on the right. This outlined ureteral stone with proximal hydronephrosis. A guidewire was placed in the kidney. I then placed a 4.8 x 26 stent in a standard fashion. Proximal coil the renal pelvis or upper pole. Distal coil in the bladder. The bladder was drained. She was awakened transferred to PACU in stable condition. Implants Ureteral stone Estimated Blood Loss 0 Complications No immediate complications Condition Stable Disposition PACU
--- NOTE | 2023-07-30 14:08 | SUR.PHASEI ---
Patient meets PACU discharge criteria at 1400, unit bed unavailable at this time. Patient placed in extended recovery status.
--- NOTE | 2023-07-30 14:46 | ADMGEN ---
This patient, Leslie Herzog, was admitted to Medical Room 348-01. Patient/family oriented to hospital policies and general routines including ID bracelet, bed and alarms, visiting hours, pain management, procedures, bathroom and other care routines, personal items, smoking policy, room service/diet, and visiting hours. Information on how to activate the Rapid Response Team has been discussed. Patient/Family are encouraged to report perceived risks to care and to ask questions if they do not understand what they are told or what they should do.
[2023-07-30] MEDS: POTASSIUM CHLORIDE INJ 40 MEQ in SODIUM CHLORIDE 0.9% IV 500 ML 130 MEQ IVPB (15:43)
[2023-07-30] MEDS: POTASSIUM CHLORIDE 20 MEQ ER TABLET 40 MEQ PO (15:44)
[2023-07-30] MEDS: SODIUM CHLORIDE 0.9% IV 1,000 ML 125 ML IV CONT (15:51)
[2023-07-30] MEDS: HYDROcodone/acetaminophen (*CRX) 5-325 MG TABLET 1 TAB PO ×2 (17:22→21:21)
[2023-07-31] MEDS: DOCUSATE SODIUM 100 MG CAPSULE PO ×2 (00:08→20:22)
[2023-07-31] MEDS: SODIUM CHLORIDE 0.9% IV 1,000 ML 125 ML IV CONT ×2 (00:11→06:16)
[2023-07-31] MEDS: HYDROcodone/acetaminophen (*CRX) 5-325 MG TABLET 1 TAB PO ×5 (02:04→20:16)
[2023-07-31 02:50] VITALS: BP 113/82; PULSE 71; RESP 18; TEMP 36.4; O2SAT 96
[2023-07-31 05:57] LABS: Hematocrit 36.6 % (37.0-47.0); Hemoglobin 12.1 g/dL (12.0-15.0); Mean Corpuscular HGB Conc 33.1 g/dl (32-36); Mean Corpuscular Hemoglobin 30.1 pg (26-34); Mean Platelet Volume 11.2 fl (7.4-10.4); Platelet Count Result 253 k/mm3 (150-375); Red Blood Count 4.02 M/mm3 (4.2-5.4); Red Cell Distribution Width 13.6 % (11.5-14.5); White Blood Count 23.9 K/mm3 (4.5-10.0)
[2023-07-31 06:00] VITALS: BP 153/79; PULSE 63; RESP 20; TEMP 36.3; O2SAT 98
[2023-07-31 06:03] LABS: Anion Gap 6 mmol/L (8-16); Blood Urea Nitrogen 14 mg/dL (7-17); Calcium 8.7 mg/dL (8.4-10.2); Carbon Dioxide 26 mmol/L (22-30); Chloride 105 mmol/L (98-107); Estimated Glomerular Filt Rate > 60; Glucose 117 mg/dL (65-110); Magnesium 1.9 mg/dL (1.6-2.3); Potassium 3.8 mmol/L (3.4-5.0); Sodium 137 mmol/L (137-145)
--- NOTE | 2023-07-31 07:31 | PM.IMPN ---
Progress Note: A&P Assessment and Plan (1) Urinary tract obstruction by kidney stone: Code(s): N20.0 - Calculus of kidney; N13.8 - Other obstructive and reflux uropathy Status: Acute (2) Hydronephrosis: Qualifiers: Hydronephrosis type: with ureteral calculous obstruction Qualified Code(s): N13.2 - Hydronephrosis with renal and ureteral calculous obstruction Code(s): N13.30 - Unspecified hydronephrosis Status: Acute (3) Pyelonephritis: Code(s): N12 - Tubulo-interstitial nephritis, not specified as acute or chronic Status: Acute (4) FRANCISCO JAVIER (obstructive sleep apnea): Code(s): G47.33 - Obstructive sleep apnea (adult) (pediatric) Status: Acute (5) Obesity (BMI 35.0-39.9 without comorbidity): Code(s): E66.9 - Obesity, unspecified Status: Acute (6) Essential (primary) hypertension: Code(s): I10 - Essential (primary) hypertension Status: Acute (7) Severe sepsis: Code(s): A41.9 - Sepsis, unspecified organism; R65.20 - Severe sepsis without septic shock Status: Acute Plan Right obstructive kidney stone, hydronephrosis, pyelonephritis Patient has right flank pain, UA shows pyuria, hematuria, positive bacteria in the urine CT abdomen pelvis suggests CT abdomen pelvis showed 11 x 5 mm calcification in the distal aspect of the right UVJ causing moderate obstructive uropathy, and moderate right hydronephrosis. Pressure urologist consultation, urethral stent will be placed urgent today Start ceftriaxone 2 mg IV daily Follow-up urine culture, urine culture grows Citrobacter CMP Sepsis Patient has fever 100.3, leukocytosis 27,000, tachycardia 102, tachypnea 22 meeting criteria for sepsis Resulting from pyelonephritis and obstructive kidney stone Antibiotics see above Follow-up blood culture pending, urine culture grows Citrobacter susceptibility test report to follow. Start fluid resuscitation Start normal saline IV Nausea vomiting Likely secondary to sepsis start Zofran irregular IV as needed Hypokalemia Potassium 2.5 Replace with potassium chloride 40 mEq IV and 40 mg p.o. Follow-up BMP FRANCISCO JAVIER Continue CPAP on home setting Anxiety Continue Xanax 0.5 mg daily p.o. p.r.n. Essential hypertension Continue hydrochlorothiazide 12.5 mg daily p.o. Subjective Date/time seen: 07/31/23 07:31 Interval history: Patient is afebrile overnight, blood pressure stable, urine culture grows Citrobacter Koseri. Pain is tolerable, denies chest pain, shortness breath Exam Narrative: GENERAL: Pleasant, in no acute distress. Well-nourished. - EYES: EOMI. Anicteric. - HENT: Moist mucous membranes. - LUNGS: Clear to auscultation bilaterally, no wheezing, rhonchi, or rales. The tachypnea - CARDIOVASCULAR: Regular rate and rhythm. No murmur. No JVD. Tachycardia - ABDOMEN: Soft, right CVA tender and non-distended. No palpable masses. - EXTREMITIES: No edema. Peripheral pulses 2+. Non-tender. - NEUROLOGIC: No focal neurological deficits. CN II-XII grossly intact. - PSYCHIATRIC: Awake, Alert and oriented x 3. Appropriate mood and affect. - SKIN: No rashes or lesions. Warm. - LYMPH: No cervical lymphadenopathy. Objective Data Vital Signs Vital Signs: Vital Signs - 24 hr 07/30/23 09:51 07/30/23 11:10 07/30/23 11:53 Temperature 99.1 F 100.3 F H 98.1 F Pulse Rate 102 H 123 H 108 H Respiratory Rate 18 15 24 H Blood Pressure 131/91 H 153/93 H 128/72 Pulse Oximetry 98 97 100 Oxygen Delivery Room Air Room Air Simple Face Mask Oxygen Flow Rate 8 07/30/23 12:15 07/30/23 12:30 07/30/23 12:45 Temperature Pulse Rate 102 H 103 H 102 H Respiratory Rate 20 18 20 Blood Pressure 143/88 H 136/83 139/83 Pulse Oximetry 100 97 97 Oxygen Delivery Simple Face Mask Room Air Room Air Oxygen Flow Rate 8 07/30/23 13:15 07/30/23 13:00 07/30/23 13:30 Temperature Pulse Rate 95 98 99 Respiratory Rate 18 20 17 Blood P
[2023-07-31] MEDS: cefTRIAXone 2 GM/NS 100 ML 2 GM/100 ML BAG IVPB (09:05)
[2023-07-31 11:02] VITALS: BP 147/85; PULSE 83; RESP 18; TEMP 36.8; O2SAT 98
[2023-07-31 14:00] VITALS: BP 149/90; PULSE 81; RESP 18; TEMP 36.6; O2SAT 100
--- NOTE | 2023-07-31 14:15 | WPDANESPN ---
Anes - Prog Note Post-Op Date/Time: 07/31/23 14:15 Cardiovascular status: normal Respiratory status: normal Airway patency: baseline Mental status: baseline Post-Op hydration status: normal Vital Signs: Last Vital Signs Temp 98.3 F 07/31/23 11:02 Pulse 83 07/31/23 11:02 Resp 18 07/31/23 11:02 BP 147/85 H 07/31/23 11:02 Pulse Ox 98 07/31/23 11:02 O2 Del Method Room Air 07/31/23 09:11 O2 Flow Rate 8 07/30/23 12:15 Pain Score (VAS): 0/10 I/O: Intake & Output 07/30/23 07/31/23 07/31/23 23:59 07:59 15:59 Intake Total 1840 1000 682 Output Total 100 700 525 Balance 1740 300 157 Laboratory Tests 07/31/23 05:36 07/31/23 05:36 07/31/23 05:36 WBC 23.9 H RBC 4.02 L Hgb 12.1 Hct 36.6 L MCV 91.0 MCH 30.1 MCHC 33.1 RDW 13.6 Plt Count 253 MPV 11.2 H Sodium 137 Potassium 3.8 Chloride 105 Carbon Dioxide 26 Anion Gap 6 L BUN 14 Creatinine 0.70 Estim Creat Clear Calc Not Reportable Estimated GFR > 60 Glucose 117 H Calcium 8.7 Magnesium 1.9 Microbiology 07/30/23 14:50 Blood Blood Culture - Preliminary 07/30/23 14:48 Blood Blood Culture - Preliminary Post-procedural complaints: none Patient Feedback: Patient satisfied with anesthetic care.
--- NOTE | 2023-07-31 15:09 | WPDUROPN2 ---
Progress Note: A&P Assessment and Plan (1) Pyelonephritis: Code(s): N12 - Tubulo-interstitial nephritis, not specified as acute or chronic Status: Acute (2) Calculus of distal right ureter: Code(s): N20.1 - Calculus of ureter Status: Acute Assessment and Plan: Feeling better. I'm tentatively planning cysto., right ureteroscopy with stone extraction, possible laser lithotripsy, retrograde pyelography and stent replacement. Subjective Subjective Date/Time Seen: 07/31/23 15:09 Interval history: Feeling much better today. Mild stent irritation. Review of Systems Review of Systems: All systems reviewed & are unremarkable except as noted in HPI and below Exam Const: General: no acute distress Resp: Effort & Inspection: normal respiratory effort GI: Inspection: non-distended GI Palp: No abdominal tenderness and No Guarding due to palpation present (GI) Auscultation: normal bowel sounds Objective Data Vital Signs Vital Signs: Vital Signs - 24 hr 07/30/23 20:00 07/30/23 22:00 07/31/23 06:00 Temperature 97.5 F L 97.3 F L Pulse Rate 90 63 Respiratory Rate 18 20 Blood Pressure 126/73 153/79 H Pulse Oximetry 96 98 Oxygen Delivery Room Air 07/31/23 02:50 07/31/23 09:11 07/31/23 11:02 Temperature 97.5 F L 98.3 F Pulse Rate 71 83 Respiratory Rate 18 18 Blood Pressure 113/82 147/85 H Pulse Oximetry 96 98 Oxygen Delivery Room Air 07/31/23 14:00 Temperature 97.8 F Pulse Rate 81 Respiratory Rate 18 Blood Pressure 149/90 H Pulse Oximetry 100 Oxygen Delivery Intake/Output Intake/Output: Intake & Output 07/28/23 07/29/23 07/30/23 07/31/23 23:59 23:59 23:59 23:59 Intake Total 0 2682 Output Total 100 1225 Balance 1940 1457 Meds/Results Medications: Active Medications Generic Name Dose Route Start Last Admin Trade Name Freq PRN Reason Stop Dose Admin Acetaminophen 650 mg 07/30/23 10:44 Acetaminophen 325 Mg Tablet PO Q4H PRN Mild Pain (1-3) or Fever Hydrocodone Bitart/Acetaminophen 1 tab 07/30/23 14:34 07/31/23 10:48 Hydrocodone/Acetaminophen (*Crx) 5-325 Mg Tablet PO 1 tab Q4H PRN Administration Pain Rated 4-6 Docusate Sodium 100 mg 07/30/23 23:51 07/31/23 00:08 Docusate Sodium 100 Mg Capsule PO 100 mg Q12H PRN Administration Constipation Enoxaparin Sodium 40 mg 07/31/23 09:00 07/31/23 09:01 Enoxaparin 40 Mg/0.4 Ml Syringe SUB-Q Not Given DAILY [facility] Fentanyl Citrate 50 mcg 07/30/23 10:44 Fentanyl Citrate Inj (*Crx) 100 Mcg/2 Ml Vial IV PUSH Q2H PRN Pain Rated 7-10 Fluticasone Propionate 1 spray 07/30/23 23:51 Fluticasone Propionate 0.05% Na Spr 16 Gm Btl (*Bkc) NASAL DAILY PRN allergies Ceftriaxone Sodium 2 gm in 100 mls @ 200 mls/hr 07/31/23 09:00 07/31/23 09:35 Rocephin 2 Gm/Ns 100 Ml IVPB Infused Q24H [facility] Infusion Loratadine 10 mg 07/30/23 23:51 Loratadine 10 Mg Tablet PO DAILY PRN allergies Ondansetron HCl 4 mg 07/30/23 10:44 Ondansetron Inj 4 Mg/2 Ml Vial IV PUSH Q4H PRN Nausea Tamsulosin HCl 0.4 mg 07/31/23 21:00 Tamsulosin Hcl 0.4 Mg Capsule PO [facility] Radiology Results: ITS Impressions Abdomen X-Ray 07/30/23 11:11 IMPRESSION: 1. 13 mm stone projecting in the urinary bladder. Retrograde Pyelogram 07/30/23 15:22 IMPRESSION: 1. Right internal ureteral stent placement. Please refer to real-time procedural findings for details. Labs Labs: Laboratory Results - last 24 hr 07/31/23 05:36 WBC 23.9 H RBC 4.02 L Hgb 12.1 Hct 36.6 L MCV 91.0 MCH 30.1 MCHC 33.1 RDW 13.6 Plt Count 253 MPV 11.2 H Sodium 137 Potassium 3.8 Chloride 105 Carbon Dioxide 26 Anion Gap 6 L BUN 14 Creatinine 0.70 Estim Creat Clear Calc Not Reportable Estimated GFR > 60 Glucose 117 H Calcium 8.7 Magnesium 1.9
--- NOTE | 2023-07-31 15:12 | PCCCNOTE ---
On 07/31/23, the student, [Joselyn Galarza], provided care and completed [facility] documentation on this patient. I have reviewed the student's documentation and agree with the findings.
[2023-07-31] MEDS: TAMSULOSIN HCL 0.4 MG CAPSULE PO (20:18)
[2023-07-31 22:00] VITALS: BP 151/90; PULSE 69; RESP 20; TEMP 36.4; O2SAT 99
[2023-08-01] MEDS: HYDROcodone/acetaminophen (*CRX) 5-325 MG TABLET 1 TAB PO ×6 (00:12→21:10)
[2023-08-01] MEDS: CALCIUM CARBONATE (TUMS) 500 MG (200 MG ELEMENTAL) PO ×2 (03:27→17:15)
[2023-08-01] MEDS: SALINE 0.65% NAS SOLN 44 ML BTL 1 SPRAY NASAL (03:27)
[2023-08-01 05:07] LABS: Basophils Absolute Auto 0.1 K/mm3 (0.0-0.1); Basophils Percent Auto 0.4 % (0.2-1.2); Eosinophils Absolute Auto 0.1 K/mm3 (0-0.3); Eosinophils Percent Auto 0.8 % (0-4.4); Hematocrit 33.2 % (37.0-47.0); Hemoglobin 10.9 g/dL (12.0-15.0); Immature Granulocyte Absolute 0.08 K/mm3 (0.00-0.031); Immature Granulocyte Percent A 0.6 % (0-0.5); Lymphocytes Absolute Auto 3.74 K/mm3 (0.9-3.2); Lymphocytes Percent Auto 25.8 % (18.3-44.2); Mean Corpuscular HGB Conc 32.8 g/dl (32-36); Mean Corpuscular Hemoglobin 30.2 pg (26-34); Monocytes Absolute Auto 1.1 K/mm3 (0.1-0.6); Monocytes Percent Auto 7.8 % (2.6-8.5); Neutrophils Absolute Auto 9.4 K/mm3 (1.3-6.7); Neutrophils Percent Auto 64.6 % (45.5-73.1); Platelet Count Result 229 k/mm3 (150-375); Red Blood Count 3.61 M/mm3 (4.2-5.4); Red Cell Distribution Width 13.7 % (11.5-14.5); White Blood Count 14.5 K/mm3 (4.5-10.0)
[2023-08-01] MEDS: BISACODYL 5 MG TABLET EC PO (05:11)
[2023-08-01 05:22] LABS: Alanine Aminotransferase 18 U/L (6-35); Albumin Level 3.3 g/dL (3.5-5.1); Alkaline Phosphatase 54 U/L (38-126); Anion Gap 6 mmol/L (8-16); Aspartate Amino Transferase 20 U/L (14-36); Bilirubin,Total 0.5 mg/dL (0.2-1.3); Blood Urea Nitrogen 12 mg/dL (7-17); Calcium 8.3 mg/dL (8.4-10.2); Carbon Dioxide 27 mmol/L (22-30); Chloride 104 mmol/L (98-107); Estimated Glomerular Filt Rate > 60; Glucose 89 mg/dL (65-110); Sodium 137 mmol/L (137-145)
[2023-08-01 06:00] VITALS: BP 132/81; PULSE 77; RESP 18; TEMP 36.3; O2SAT 97
--- NOTE | 2023-08-01 06:48 | WPDUROPN2 ---
Progress Note: A&P Assessment and Plan (1) Pyelonephritis: Code(s): N12 - Tubulo-interstitial nephritis, not specified as acute or chronic Status: Acute (2) Urinary tract obstruction by kidney stone: Code(s): N20.0 - Calculus of kidney; N13.8 - Other obstructive and reflux uropathy Status: Acute Assessment and Plan: Scheduled for ureteroscopy with stone extraction . Suggest keep her admitted until then. Anticipate discharge (after procedure) or Sunday. Subjective Subjective Date/Time Seen: 08/01/23 06:48 Interval history: Improving - feeling better and leukocytosis resolving. Review of Systems Cardiovascular: Cardiovascular: Denies chest pain, Denies lightheadedness, Denies palpitations and Denies dyspnea Respiratory: Respiratory: Denies dyspnea Gastrointestinal: Gastrointestinal: Denies diarrhea, Denies nausea and Denies vomiting Genitourinary: Genitourinary: Denies hematuria and Denies dysuria Endocrine: Endocrine: Denies palpitations Exam Const: General: no acute distress Resp: Effort & Inspection: normal respiratory effort GI: Inspection: non-distended GI Palp: No abdominal tenderness and No Guarding due to palpation present (GI) Auscultation: normal bowel sounds Objective Data Vital Signs Vital Signs: Vital Signs - 24 hr 07/31/23 09:11 07/31/23 11:02 07/31/23 14:00 Temperature 98.3 F 97.8 F Pulse Rate 83 81 Respiratory Rate 18 18 Blood Pressure 147/85 H 149/90 H Pulse Oximetry 98 100 Oxygen Delivery Room Air 07/31/23 22:00 Temperature 97.5 F L Pulse Rate 69 Respiratory Rate 20 Blood Pressure 151/90 H Pulse Oximetry 99 Oxygen Delivery Intake/Output Intake/Output: Intake & Output 07/29/23 07/30/23 07/31/23 08/01/23 23:59 23:59 23:59 23:59 Intake Total 0 3922 Output Total 100 1675 150 Balance 1940 2247 -150 Meds/Results Medications: Active Medications Generic Name Dose Route Start Last Admin Trade Name Freq PRN Reason Stop Dose Admin Acetaminophen 650 mg 07/30/23 10:44 Acetaminophen 325 Mg Tablet PO Q4H PRN Mild Pain (1-3) or Fever Hydrocodone Bitart/Acetaminophen 1 tab 07/30/23 14:34 08/01/23 04:10 Hydrocodone/Acetaminophen (*Crx) 5-325 Mg Tablet PO 1 tab Q4H PRN Administration Pain Rated 4-6 Calcium Carbonate 200 mg 08/01/23 02:48 08/01/23 03:27 Calcium Carbonate (Tums) 500 Mg (200 Mg Elemental) PO 200 mg Q6H PRN Administration Indigestion Docusate Sodium 100 mg 07/30/23 23:51 07/31/23 20:22 Docusate Sodium 100 Mg Capsule PO 100 mg Q12H PRN Administration Constipation Enoxaparin Sodium 40 mg 07/31/23 09:00 07/31/23 09:01 Enoxaparin 40 Mg/0.4 Ml Syringe SUB-Q Not Given DAILY [facility] Fentanyl Citrate 50 mcg 07/30/23 10:44 Fentanyl Citrate Inj (*Crx) 100 Mcg/2 Ml Vial IV PUSH Q2H PRN Pain Rated 7-10 Fluticasone Propionate 1 spray 07/30/23 23:51 Fluticasone Propionate 0.05% Na Spr 16 Gm Btl (*Bkc) NASAL DAILY PRN allergies Ceftriaxone Sodium 2 gm in 100 mls @ 200 mls/hr 07/31/23 09:00 07/31/23 09:35 Rocephin 2 Gm/Ns 100 Ml IVPB Infused Q24H [facility] Infusion Loratadine 10 mg 07/30/23 23:51 Loratadine 10 Mg Tablet PO DAILY PRN allergies Ondansetron HCl 4 mg 07/30/23 10:44 Ondansetron Inj 4 Mg/2 Ml Vial IV PUSH Q4H PRN Nausea Sodium Chloride 1 spray 08/01/23 02:48 08/01/23 03:27 Saline 0.65% Ike Soln 44 Ml Btl NASAL 1 spray Q6HR PRN Administration Congestion Tamsulosin HCl 0.4 mg 07/31/23 21:00 07/31/23 20:18 Tamsulosin Hcl 0.4 Mg Capsule PO 0.4 mg HS ZACK Administration Radiology Results: ITS Impressions Abdomen X-Ray 07/30/23 11:11 IMPRESSION: 1. 13 mm stone projecting in the urinary bladder. Retrograde Pyelogram 07/30/23 15:22 IMPRESSION: 1. Right internal ureteral stent placement. Please refer to
--- NOTE | 2023-08-01 08:25 | PM.IMPN ---
Progress Note: A&P Assessment and Plan (1) Urinary tract obstruction by kidney stone: Code(s): N20.0 - Calculus of kidney; N13.8 - Other obstructive and reflux uropathy Status: Acute (2) Hydronephrosis: Qualifiers: Hydronephrosis type: with ureteral calculous obstruction Qualified Code(s): N13.2 - Hydronephrosis with renal and ureteral calculous obstruction Code(s): N13.30 - Unspecified hydronephrosis Status: Acute (3) Pyelonephritis: Code(s): N12 - Tubulo-interstitial nephritis, not specified as acute or chronic Status: Acute (4) FRANCISCO JAVIER (obstructive sleep apnea): Code(s): G47.33 - Obstructive sleep apnea (adult) (pediatric) Status: Acute (5) Obesity (BMI 35.0-39.9 without comorbidity): Code(s): E66.9 - Obesity, unspecified Status: Acute (6) Essential (primary) hypertension: Code(s): I10 - Essential (primary) hypertension Status: Acute (7) Severe sepsis: Code(s): A41.9 - Sepsis, unspecified organism; R65.20 - Severe sepsis without septic shock Status: Acute Plan Right obstructive kidney stone, hydronephrosis, pyelonephritis Patient has right flank pain, UA shows pyuria, hematuria, positive bacteria in the urine CT abdomen pelvis suggests CT abdomen pelvis showed 11 x 5 mm calcification in the distal aspect of the right UVJ causing moderate obstructive uropathy, and moderate right hydronephrosis. Pressure urologist consultation, urethral stent will be placed urgent today Start ceftriaxone 2 mg IV daily Follow-up urine culture, urine culture grows Citrobacter, susceptible to ceftriaxone Urologist has scheduled for ureteroscopy with stone extraction . Plans to discharge patient after the surgical procedure on Sepsis Patient has fever 100.3, leukocytosis 27,000, tachycardia 102, tachypnea 22 meeting criteria for sepsis Resulting from pyelonephritis and obstructive kidney stone Antibiotics see above Follow-up blood culture, no growth so far, urine culture grows Citrobacter Received fluid resuscitation, and normal saline IV Sepsis resolved, discontinue IV fluid Nausea vomiting Likely secondary to sepsis start Zofran irregular IV as needed Resolved Hypokalemia Potassium 2.5 Replace with potassium chloride 40 mEq IV and 40 mg p.o. b.i.d. Follow magnesium Follow-up BMP FRANCISCO JAVIER Continue CPAP on home setting Anxiety Continue Xanax 0.5 mg daily p.o. p.r.n. Constipation Likely secondary to pain medication Continue Senokot docusate, start MiraLax p.o. as needed b.i.d. Essential hypertension Continue hydrochlorothiazide 12.5 mg daily p.o. Discontinue hydrochlorothiazide because of hypokalemia Patient has agreed to take losartan 25 mg eye discharge Subjective Date/time seen: 08/01/23 08:25 Interval history: I saw and examined the patient today, patient feels better, as tolerable, denies nausea vomiting, afebrile, leukocytosis improving, Exam Narrative: GENERAL: Pleasant, in no acute distress. Well-nourished. - EYES: EOMI. Anicteric. - HENT: Moist mucous membranes. - LUNGS: Clear to auscultation bilaterally, no wheezing, rhonchi, or rales. The tachypnea - CARDIOVASCULAR: Regular rate and rhythm. No murmur. No JVD. Tachycardia - ABDOMEN: Soft, right CVA tender and non-distended. No palpable masses. - EXTREMITIES: No edema. Peripheral pulses 2+. Non-tender. - NEUROLOGIC: No focal neurological deficits. CN II-XII grossly intact. - PSYCHIATRIC: Awake, Alert and oriented x 3. Appropriate mood and affect. - SKIN: No rashes or lesions. Warm. - LYMPH: No cervical lymphadenopathy. Objective Data Vital Signs Vital Signs: Vital Signs - 24 hr 07/31/23 09:11 07/31/23 11:02 07/31/23 14:00 Temperature 98.3 F 97.8 F Pulse Rate 83 81 Respiratory Rate 18 18 Blood Pressure 147/85 H 149/90 H Pulse Oximetry 98 100 Oxygen Delivery Room Air 07/31/23 22:00 08/01/23 06:00 Temp
[2023-08-01] MEDS: cefTRIAXone 2 GM/NS 100 ML 2 GM/100 ML BAG IVPB (09:37)
[2023-08-01] MEDS: FAMOTIDINE 20 MG TABLET PO (09:37)
[2023-08-01] MEDS: POTASSIUM CHLORIDE 20 MEQ PACKET (FOR LIQUID) 40 MEQ PO (09:38)
[2023-08-01 10:16] LABS: Magnesium 1.8 mg/dL (1.6-2.3)
[2023-08-01 14:00] VITALS: BP 147/90; PULSE 82; RESP 16; TEMP 36.8; O2SAT 100
--- NOTE | 2023-08-01 14:44 | WPDANESEPPF ---
Anes - Initial Pre Proc Eval Procedure: Operation Date: 08/02/23 13:30 Proposed Procedures p Cystoscopy, Right Ureteroscopy, Right Retrograde Pyelogram, Possible Right Stone Extraction, Possible Right Stent Removal/Re-Placement, Possible Holmium Laser - Thor Ryder MD Date/Time: 08/01/23 14:44 Surgeon: Zahra Dejesus MD Pre Op Diagnosis: kidney stone Patient Data Age: 38 Gender: F Height: Weight: 95.3 kg Last Vital Signs Temp 36.3 C L 08/01/23 06:00 Pulse 77 08/01/23 06:00 Resp 18 08/01/23 06:00 BP 132/81 08/01/23 06:00 Pulse Ox 97 08/01/23 06:00 O2 Del Method Room Air 08/01/23 08:00 O2 Flow Rate 8 07/30/23 12:15 Allergies Allergy/AdvReac Type Severity Reaction Status Date / Time losartan Allergy Intermediate headache, Verified 07/30/23 14:48 fatigue morphine Allergy Intermediate itching Verified 07/30/23 14:48 amlodipine AdvReac Severe THOM LE Verified 07/30/23 14:48 swelling lisinopril AdvReac Severe cough Verified 07/30/23 14:48 Home Medications Medication Instructions Recorded Confirmed Type mecobalamin (vitamin B12) 5,000 5,000 mcg PO .3 times a week 06/17/19 07/30/23 History mcg disintegrating tablet cetirizine 10 mg capsule (Zyrtec) 10 mg PO DAILY PRN allergies 12/13/21 07/30/23 History tamsulosin 0.4 mg capsule (Flomax) 0.4 mg PO HS #14 caps 07/28/23 07/30/23 Rx fluticasone propionate 50 1 spray intranasal DAILY PRN 07/30/23 07/30/23 History mcg/actuation nasal allergies spray,suspension (Flonase Allergy Relief) hydrochlorothiazide 12.5 mg tablet 12.5 mg PO BID 07/30/23 07/30/23 History Laboratory Tests 08/01/23 08/01/23 04:52 04:54 WBC 14.5 H K/mm3 (4.5-10.0) RBC 3.61 L M/mm3 (4.2-5.4) Hgb 10.9 L g/dL (12.0-15.0) Hct 33.2 L % (37.0-47.0) MCV 92.0 fl (80-100) MCH 30.2 pg (26-34) MCHC 32.8 g/dl (32-36) RDW 13.7 % (11.5-14.5) Plt Count 229 k/mm3 (150-375) MPV 11.0 H fl (7.4-10.4) Immature Gran % (Auto) 0.6 H % (0-0.5) Neut % (Auto) 64.6 % (45.5-73.1) Lymph % (Auto) 25.8 % (18.3-44.2) [place] % (Auto) 7.8 % (2.6-8.5) Eos % (Auto) 0.8 % (0-4.4) Baso % (Auto) 0.4 % (0.2-1.2) Lymph # (Auto) 3.74 H K/mm3 (0.9-3.2) [place] # (Auto) 1.1 H K/mm3 (0.1-0.6) Eos # (Auto) 0.1 K/mm3 (0-0.3) Baso # (Auto) 0.1 K/mm3 (0.0-0.1) Abs Immat Gran (auto) 0.08 H K/mm3 (0.00-0.031) Absolute Neuts (auto) 9.4 H K/mm3 (1.3-6.7) Absolute Nucleated RBC 0.0 K/mm3 (0.0-0.012) Nucleated RBC % 0.0 % (0.0-0.2) Sodium 137 mmol/L (137-145) Potassium 3.0 L mmol/L (3.4-5.0) Chloride 104 mmol/L (98-107) Carbon Dioxide 27 mmol/L (22-30) Anion Gap 6 L mmol/L (8-16) BUN 12 mg/dL (7-17) Creatinine 0.60 L mg/dL (0.7-1.0) Estim Creat Clear Calc Not Reportable Estimated GFR > 60 (59 - ) Glucose 89 mg/dL (65-110) Calcium 8.3 L mg/dL (8.4-10.2) Magnesium 1.8 mg/dL (1.6-2.3) Total Bilirubin 0.5 mg/dL (0.2-1.3) AST 20 U/L (14-36) ALT 18 U/L (6-35) Alkaline Phosphatase 54 U/L (38-126) Total Protein 6.0 L g/dL (6.3-8.2) Albumin 3.3 L g/dL (3.5-5.1) Patient hx anesthesia problems: none Family hx anesthesia problems: none Results Review: All pre-operative results and documents have been reviewed as part of the pre-operative evaluation. [facility] Past Medical History Medical History COVID-19 Essential (primary) hypertension Fever LINO (generalized anxiety disorder) History of COVID-19 Left foot pain Obesity (BMI 35.0-39.9 without comorbidity) Seasonal allergies Sinusitis Surgical History Surgical History (Reviewed 07/30/23 @ 17:36 by Kimber Gil
[2023-08-01] MEDS: POTASSIUM CHLORIDE 20 MEQ ER TABLET 40 MEQ PO (16:01)
[2023-08-01] MEDS: DOCUSATE SODIUM 100 MG CAPSULE PO (17:15)
[2023-08-01] MEDS: TAMSULOSIN HCL 0.4 MG CAPSULE PO (21:10)
[2023-08-01 22:12] VITALS: BP 127/82; PULSE 91; RESP 20; TEMP 36.9; O2SAT 98
[2023-08-02] VITALS (7 sets, daily range): BP systolic 142–167; BP diastolic 80–100; PULSE 71–97; RESP 16–23; TEMP 36.3–37.1; O2SAT 98–100
[2023-08-02] MEDS: HYDROcodone/acetaminophen (*CRX) 5-325 MG TABLET 1 TAB PO ×4 (01:02→16:20)
--- NOTE | 2023-08-02 03:12 | PCRCNOTE ---
patient refused use of hospital unit; patient stated that her home unit has the 'perfect' mask and that she did not want to use hospital unit
[2023-08-02 05:12] LABS: Basophils Absolute Auto 0.1 K/mm3 (0.0-0.1); Basophils Percent Auto 0.8 % (0.2-1.2); Eosinophils Absolute Auto 0.2 K/mm3 (0-0.3); Eosinophils Percent Auto 2.3 % (0-4.4); Hematocrit 32.9 % (37.0-47.0); Hemoglobin 10.6 g/dL (12.0-15.0); Immature Granulocyte Absolute 0.06 K/mm3 (0.00-0.031); Immature Granulocyte Percent A 0.7 % (0-0.5); Lymphocytes Absolute Auto 3.09 K/mm3 (0.9-3.2); Mean Corpuscular HGB Conc 32.2 g/dl (32-36); Mean Corpuscular Hemoglobin 29.9 pg (26-34); Mean Corpuscular Volume 92.9 fl (80-100); Mean Platelet Volume 10.8 fl (7.4-10.4); Monocytes Absolute Auto 0.8 K/mm3 (0.1-0.6); Monocytes Percent Auto 9.5 % (2.6-8.5); Neutrophils Absolute Auto 4.6 K/mm3 (1.3-6.7); Neutrophils Percent Auto 51.7 % (45.5-73.1); Platelet Count Result 261 k/mm3 (150-375); Red Blood Count 3.54 M/mm3 (4.2-5.4); Red Cell Distribution Width 13.6 % (11.5-14.5); White Blood Count 8.8 K/mm3 (4.5-10.0)
[2023-08-02 05:20] LABS: Alanine Aminotransferase 22 U/L (6-35); Albumin Level 3.3 g/dL (3.5-5.1); Alkaline Phosphatase 56 U/L (38-126); Anion Gap 5 mmol/L (8-16); Aspartate Amino Transferase 17 U/L (14-36); Bilirubin,Total 0.5 mg/dL (0.2-1.3); Blood Urea Nitrogen 9 mg/dL (7-17); Calcium 8.4 mg/dL (8.4-10.2); Carbon Dioxide 29 mmol/L (22-30); Chloride 102 mmol/L (98-107); Estimated Glomerular Filt Rate > 60; Glucose 90 mg/dL (65-110); Potassium 3.5 mmol/L (3.4-5.0); Sodium 136 mmol/L (137-145)
[2023-08-02 05:29] LABS: Pregnancy On Board Control Positive; Urine Pregnancy Test Negative
--- NOTE | 2023-08-02 06:33 | WPDHPUPDATE1 ---
History and Physical Update Update Date/Time: 08/02/23 06:33 History and Physical has been reviewed, including an updated exam of the patient. There are NO changes in the patient's condition. Risks, benefits, and alternatives have been discussed and questions answered. Patient agrees to proceed with procedure.
[2023-08-02] MEDS: DOCUSATE SODIUM 100 MG CAPSULE PO (09:16)
[2023-08-02] MEDS: POTASSIUM CHLORIDE 20 MEQ ER TABLET 40 MEQ PO (09:16)
--- NOTE | 2023-08-02 10:08 | PM.IMPN ---
Progress Note: A&P Assessment and Plan (1) Urinary tract obstruction by kidney stone: Code(s): N20.0 - Calculus of kidney; N13.8 - Other obstructive and reflux uropathy Status: Acute (2) Hydronephrosis: Qualifiers: Hydronephrosis type: with ureteral calculous obstruction Qualified Code(s): N13.2 - Hydronephrosis with renal and ureteral calculous obstruction Code(s): N13.30 - Unspecified hydronephrosis Status: Acute (3) Pyelonephritis: Code(s): N12 - Tubulo-interstitial nephritis, not specified as acute or chronic Status: Acute (4) FRANCISCO JAVIER (obstructive sleep apnea): Code(s): G47.33 - Obstructive sleep apnea (adult) (pediatric) Status: Acute (5) Obesity (BMI 35.0-39.9 without comorbidity): Code(s): E66.9 - Obesity, unspecified Status: Acute (6) Essential (primary) hypertension: Code(s): I10 - Essential (primary) hypertension Status: Acute (7) Severe sepsis: Code(s): A41.9 - Sepsis, unspecified organism; R65.20 - Severe sepsis without septic shock Status: Acute Plan Right obstructive kidney stone, hydronephrosis, pyelonephritis Patient has right flank pain, UA shows pyuria, hematuria, positive bacteria in the urine CT abdomen pelvis suggests CT abdomen pelvis showed 11 x 5 mm calcification in the distal aspect of the right UVJ causing moderate obstructive uropathy, and moderate right hydronephrosis. Pressure urologist consultation, urethral stent will be placed urgent today Start ceftriaxone 2 mg IV daily Follow-up urine culture, urine culture grows Citrobacter, susceptible to ceftriaxone 08/01 Urologist has scheduled for ureteroscopy with stone extraction . Plans to discharge patient after the surgical procedure on Cystoscopy, right ureteral stent removed, right ureteroscopy with laser lithotripsy, stone extraction right ureteral stent replacement done 08/02, no complication. Patient denies chest pain, abdomen pain, nausea vomiting Will change to Augmentin p.o. for 7 more days on discharge Sepsis Patient has fever 100.3, leukocytosis 27,000, tachycardia 102, tachypnea 22 meeting criteria for sepsis Resulting from pyelonephritis and obstructive kidney stone Antibiotics see above Follow-up blood culture, no growth so far, urine culture grows Citrobacter Received fluid resuscitation, and normal saline IV Sepsis resolved, discontinue IV fluid Now patient is afebrile, blood pressure stable, leukocytosis has resolved Nausea vomiting Likely secondary to sepsis start Zofran irregular IV as needed Resolved Hypokalemia Potassium 2.5 Replace with potassium chloride 40 mEq IV and 40 mg p.o. b.i.d. Follow magnesium Follow-up BMP, potassium 3.5 FRANCISCO JAVIER Continue CPAP on home setting Anxiety Continue Xanax 0.5 mg daily p.o. p.r.n. Constipation Likely secondary to pain medication Continue Senokot docusate, start MiraLax p.o. as needed b.i.d. Essential hypertension Continue hydrochlorothiazide 12.5 mg daily p.o. Discontinue hydrochlorothiazide because of hypokalemia Patient has agreed to take losartan 25 mg eye discharge Subjective Date/time seen: 08/02/23 10:08 Interval history: I saw and examined the patient today, patient underwent a cystoscope, today, stent and stone was removed. Patient patient denies abdomen pain, dysuria, chest pain, as tolerable, denies nausea vomiting, afebrile, leukocytosis resolved, Exam Narrative: GENERAL: Pleasant, in no acute distress. Well-nourished. - EYES: EOMI. Anicteric. - HENT: Moist mucous membranes. - LUNGS: Clear to auscultation bilaterally, no wheezing, rhonchi, or rales. The tachypnea - CARDIOVASCULAR: Regular rate and rhythm. No murmur. No JVD. Tachycardia - ABDOMEN: Soft, no tender and non-distended. No palpable masses. - EXTREMITIES: No edema. Peripheral pulses 2+. Non-tender. - NEUROLOGIC: No focal neurological deficits. CN II-XII grossly intact
[2023-08-02] MEDS: cefTRIAXone 2 GM/NS 100 ML 2 GM/100 ML BAG IVPB (10:12)
[2023-08-02] MEDS: LACTATED RINGERS 1,000 ML 30 ML IV CONT (13:18)
[2023-08-02] MEDS: LIDOCAINE HCL 2% GEL UROJET 10 ML PKG MUCOUS MEM (13:20)
--- NOTE | 2023-08-02 13:56 | W.PM.PROC2 ---
Procedure Note - Detailed Date of Procedure 08/02/23 Pre-op Diagnosis Right ureteral stone Post-op Diagnosis Same Procedure Performed Cystoscopy, right ureteral stent removed, right ureteroscopy with laser lithotripsy, stone extraction right ureteral stent replacement Surgeon Thor Ryder MD Anesthesia General Description of Procedure Patient is brought to the operative suite where she is prepped and draped in routine sterile fashion while in dorsal lithotomy position after the uneventful induction of a general LMA anesthetic. Cystoscopy was undertaken with a 21F rigid cystoscope. The indwelling stent is identified, grasped and removed with ease. her bladder was otherwise normal without mucosal hyperemia and there were no signs of foreign body or neoplasm (other than the indwelling stent). A 0.035 glidewire was advanced into the right renal pelvis under fluoroscopy and the distal ureter was dilated with an 8F/10F dilator. Ureteroscopy was undertaken with a short tapered semi-rigid ureteral scope. She has a large 7 mm stone that is impacted in the intramural left ureter. Used a 200 micron holmium laser fiber to dust the stone in all pieces were extracted with a 1.9 F disposable stone basket. A 4.8 F variable length stent was replaced and positioned appropriately. Scopes and wires were removed. She was taken to the recovery room in good condition Estimated Blood Loss 0 Urine Output 960 Drains Yes Packing No Pathology Yes Complications No immediate complications Condition Stable
--- NOTE | 2023-08-02 15:11 | PM.DS ---
DS: Admitting Diagnosis Discharge Date (1) Urinary tract obstruction by kidney stone: ?Code(s): N20.0 - Calculus of kidney; N13.8 - Other obstructive and reflux uropathy ?Status:?Acute (2) Hydronephrosis: ?Qualifiers: ?Hydronephrosis type:?with ureteral calculous obstruction? Qualified Code(s):?N13.2 - Hydronephrosis with renal and ureteral calculous obstruction ?Code(s): N13.30 - Unspecified hydronephrosis ?Status:?Acute (3) Pyelonephritis: ?Code(s): N12 - Tubulo-interstitial nephritis, not specified as acute or chronic ?Status:?Acute (4) FRANCISCO JAVIER (obstructive sleep apnea): ?Code(s): G47.33 - Obstructive sleep apnea (adult) (pediatric) ?Status:?Acute (5) Obesity (BMI 35.0-39.9 without comorbidity): ?Code(s): E66.9 - Obesity, unspecified ?Status:?Acute (6) Essential (primary) hypertension: ?Code(s): I10 - Essential (primary) hypertension ?Status:?Acute (7) Severe sepsis: ?Code(s): A41.9 - Sepsis, unspecified organism; R65.20 - Severe sepsis without septic shock ?Status:?Acute Admitting Diagnosis (1) Urinary tract obstruction by kidney stone: ?Code(s): N20.0 - Calculus of kidney; N13.8 - Other obstructive and reflux uropathy ?Status:?Acute (2) Hydronephrosis: ?Qualifiers: ?Hydronephrosis type:?with ureteral calculous obstruction? Qualified Code(s):?N13.2 - Hydronephrosis with renal and ureteral calculous obstruction ?Code(s): N13.30 - Unspecified hydronephrosis ?Status:?Acute (3) Pyelonephritis: ?Code(s): N12 - Tubulo-interstitial nephritis, not specified as acute or chronic ?Status:?Acute (4) FRANCISCO JAVIER (obstructive sleep apnea): ?Code(s): G47.33 - Obstructive sleep apnea (adult) (pediatric) ?Status:?Acute (5) Obesity (BMI 35.0-39.9 without comorbidity): ?Code(s): E66.9 - Obesity, unspecified ?Status:?Acute (6) Essential (primary) hypertension: ?Code(s): I10 - Essential (primary) hypertension ?Status:?Acute (7) Severe sepsis: ?Code(s): A41.9 - Sepsis, unspecified organism; R65.20 - Severe sepsis without septic shock ?Status:?Acute DS: Discharge Diagnosis Discharge Diagnosis (1) Urinary tract obstruction by kidney stone: Code(s): N20.0 - Calculus of kidney; N13.8 - Other obstructive and reflux uropathy Status: Acute (2) Hydronephrosis: Qualifiers: Hydronephrosis type: with ureteral calculous obstruction Qualified Code(s): N13.2 - Hydronephrosis with renal and ureteral calculous obstruction Code(s): N13.30 - Unspecified hydronephrosis Status: Acute (3) Pyelonephritis: Code(s): N12 - Tubulo-interstitial nephritis, not specified as acute or chronic Status: Acute (4) FRANCISCO JAVIER (obstructive sleep apnea): Code(s): G47.33 - Obstructive sleep apnea (adult) (pediatric) Status: Acute (5) Obesity (BMI 35.0-39.9 without comorbidity): Code(s): E66.9 - Obesity, unspecified Status: Acute (6) Essential (primary) hypertension: Code(s): I10 - Essential (primary) hypertension Status: Acute (7) Severe sepsis: Code(s): A41.9 - Sepsis, unspecified organism; R65.20 - Severe sepsis without septic shock Status: Acute DS: Summary Hospital Course Hospital Course: 38-year-old female with a history of hypertension, present ED with a chief complaint of right flank pain.? Patient has been having intermittent right fem pain in past 2 days, patient came to ED for evaluation on jul 28, CT abdomen pelvis showed?11 x 5 mm calcification in the distal aspect of the right UVJ causing moderate obstructive uropathy, and moderate right hydronephrosis.? Urinalysis showed pyuria and hematuria, 2+ bacteria.? Leukocytosis 11.? Patient was discharged home with the pain and antiemetic medication,? tamsulosin.? Patient came back home still has worsening t right flank pain, patient has suprapubic pain, dysuria., pat
--- NOTE | 2023-08-03 10:28 | WPDANESPN ---
Anes - Prog Note Post-Op Date/Time: 08/03/23 10:28 Cardiovascular status: normal Respiratory status: normal Airway patency: baseline Mental status: baseline Post-Op hydration status: normal Vital Signs: Last Vital Signs Temp 97.4 F L 08/02/23 14:00 Pulse 82 08/02/23 14:25 Resp 17 08/02/23 14:25 BP 155/93 H 08/02/23 14:25 Pulse Ox 99 08/02/23 14:25 O2 Del Method Room Air 08/02/23 14:25 O2 Flow Rate 6 08/02/23 14:10 Pain Score (VAS): 0/10 Laboratory Tests 08/02/23 04:51 08/02/23 04:51 Post-procedural complaints: none Patient Feedback: Patient satisfied with anesthetic care.
== END 2023-08-02 16:38 | disposition home or self-care (01) ==
LOC: ANHED 10:35 → ANHSURGERY 10:37 → ANHED 10:53 → ANH3MED 14:34
PROVIDERS: Internal Medicine; Physician Assistant; Urology; Admitting Provider Hospitalist; Emergency Provider Physician Assistant; PCP Nurse Practitioner Family; Visit Provider Hospitalist
PROC: (CPT 52352; principal; 2023-07-30 15:00)
DX: N12 Tubulo-interstitial nephritis, not specified as acute or chronic (principal); R65.20 Severe sepsis without septic shock; N13.2 Hydronephrosis with renal and ureteral calculous obstruction; N13.8 Other obstructive and reflux uropathy; A41.9 Sepsis, unspecified organism; E66.9 Obesity, unspecified; G47.33 Obstructive sleep apnea (adult) (pediatric); Z99.89 Dependence on other enabling machines and devices; I10 Essential (primary) hypertension; R31.9 Hematuria, unspecified; D72.829 Elevated white blood cell count, unspecified; K59.00 Constipation, unspecified; R00.0 Tachycardia, unspecified; R06.82 Tachypnea, not elsewhere classified; E87.6 Hypokalemia; F41.1 Generalized anxiety disorder; Z86.16 Personal history of COVID-19; Z87.891 Personal history of nicotine dependence; Z82.49 Family history of ischemic heart disease and other diseases of the circulatory system
CPT/HCPCS: 52332; 52356; 36415; 74018; 74420; 80048; 80053; 81025; 82365; 83605; 83735; 85025; 85027; 85610; 85730; 87040; 87086; 87088; 88300; 96374; 99285; A9270; C1758; C1769; C2617; G0378; J0696; J1100; J1885; J2250; J2405; J2704; J3010; J3480; J7030; J7040; J7120; Q9966

== ENCOUNTER 2023-11-01 08:57 | Outpatient (CLI) | payer OTHER, SELFPAY ==
[2023-11-01 09:52] LABS: Basophils Absolute Auto 0.1 K/mm3 (0.0-0.1); Basophils Percent Auto 0.8 % (0.2-1.2); Eosinophils Absolute Auto 0.2 K/mm3 (0-0.3); Eosinophils Percent Auto 1.9 % (0-4.4); Immature Granulocyte Absolute 0.07 K/mm3 (0.00-0.031); Immature Granulocyte Percent A 0.7 % (0-0.5); Lymphocytes Absolute Auto 2.72 K/mm3 (0.9-3.2); Lymphocytes Percent Auto 28.7 % (18.3-44.2); Mean Corpuscular HGB Conc 33.3 g/dl (32-36); Mean Corpuscular Hemoglobin 29.9 pg (26-34); Mean Corpuscular Volume 89.6 fl (80-100); Mean Platelet Volume 11.8 fl (7.4-10.4); Monocytes Absolute Auto 0.6 K/mm3 (0.1-0.6); Monocytes Percent Auto 6.6 % (2.6-8.5); Neutrophils Absolute Auto 5.8 K/mm3 (1.3-6.7); Neutrophils Percent Auto 61.3 % (45.5-73.1); Platelet Count Result 293 k/mm3 (150-375); Red Blood Count 4.69 M/mm3 (4.2-5.4); Red Cell Distribution Width 13.9 % (11.5-14.5); White Blood Count 9.5 K/mm3 (4.5-10.0)
[2023-11-01 10:55] LABS: Vitamin D 25 Hydroxy 41.7 ng/mL
[2023-11-01 13:57] LABS: Alanine Aminotransferase 23 U/L (6-35); Albumin Level 4.4 g/dL (3.5-5.1); Alkaline Phosphatase 67 U/L (38-126); Anion Gap 4 mmol/L (8-16); Aspartate Amino Transferase 24 U/L (14-36); Bilirubin,Total 0.6 mg/dL (0.2-1.3); Blood Urea Nitrogen 12 mg/dL (7-17); Calcium 9.6 mg/dL (8.4-10.2); Carbon Dioxide 30 mmol/L (22-30); Chloride 103 mmol/L (98-107); Cholesterol 228 mg/dL (0-200); Estimated Glomerular Filt Rate > 60; Glucose 97 mg/dL (65-110); HDL Direct 42 mg/dL; Potassium 3.4 mmol/L (3.4-5.0); Sodium 137 mmol/L (137-145); Triglycerides 162 mg/dL (<150)
[2023-11-01 14:08] LABS: LDL Cholesterol Direct 158 mg/dL
[2023-11-01 14:22] LABS: Thyroid Stimulating Hormone 0.881 uIU/mL (0.465-4.680)
[2023-11-02 11:52] LABS: Hemoglobin A1C 5.6 % (<5.7)
== END 2023-11-01 08:58 | disposition home or self-care (01) ==
LOC: ANHLAB 08:58
PROVIDERS: PCP Nurse Practitioner Family; Visit Provider Nurse Practitioner Family
DX: Z00.00 Encounter for general adult medical examination without abnormal findings (principal)
CPT/HCPCS: 36415; 80053; 80061; 82306; 82607; 83036; 84443; 85025

== ENCOUNTER 2024-03-25 11:29 | Outpatient (CLI) | payer OTHER, SELFPAY ==
--- NOTE | ~2024-03-25 | XR_ITS ---
XR abdomen/kub 1V 03/25/2024 11:41 INDICATION: History of ureteral stones TECHNIQUE: KUB COMPARISON: None FINDINGS: Bowel gas pattern is normal. There is no evidence of free air, mass, organomegaly, ascites or obstruction. No abnormal calculi are seen. The bones appear intact. There is an IUD in the pelv is. IMPRESSION: 1: No acute abdominal abnormality identified. Reviewed, dictated and finalized at location B.
== END 2024-03-25 11:30 | disposition home or self-care (01) ==
PROVIDERS: PCP Nurse Practitioner Family; Visit Provider Urology
DX: N20.1 Calculus of ureter (principal)
CPT/HCPCS: 74018